=== PATIENT | female | born 1950 | race Caucasian/White ===

== ENCOUNTER 2016-06-19 08:18 | Inpatient (IN) ==
[2016-06-19] MEDS ORDERED: Ondansetron 4 MG/2 ML VIAL IVP PRN (09:56)
--- NOTE | 2016-06-19 11:08 | Internal Med History&Physical ---
<Elke Martinez - Last Filed: 06/19/16 12:08> Date of Encounter: 06/19/16 Time of Encounter: 10:34 Assessment and Plan (1) Acute exacerbation of chronic obstructive airways disease Current visit: No Status: Acute 2 day history of non-productive cough, rhinorrhea, and subjective fevers. Pt presented to ED in [place] for diaphoresis. WBC 6.4, chest xray shows persistent partial L lung collapse and volume loss which has progressed mildly from 03/2016. Denies wheezing, however she has audible wheezing during exam. She wears 3L 02 at home. Will continue. Duonebs q4h Albuerol nebs q2h prn Telemetry Continuous pulse ox Solumedrol 40mg IV O2 n/c check CT chest (2) Atelectasis of left lung Current visit: Yes Status: Acute chest xray shows persistent partial L lung collapse and volume loss which has progressed mildly from 03/2016. repeat ct chest. may need pulmonary consult. (3) Chronic respiratory failure Current visit: Yes Status: Acute 3L at home. at baseline. Qualifiers: Respiratory failure complication: hypoxia Qualified Code(s): J96.11 - Chronic respiratory failure with hypoxia (4) Chronic kidney disease Current visit: No Status: Chronic GFR 53, Creatinine 1.03. Pt of Dr. Pickett. Avoid nephrotoxins and NSAIDs Monitor labs Qualifiers: Chronic kidney disease stage: stage 1 Qualified Code(s): N18.1 - Chronic kidney disease, stage 1 (5) Anemia Current visit: No Status: Chronic Hgb 9.6. Stable. Will continue to monitor labs. Qualifiers: Anemia type: iron deficiency Iron deficiency anemia type: unspecified iron deficiency Qualified Code(s): D50.9 - Iron deficiency anemia, unspecified (6) Tobacco abuse Current visit: Yes Status: Chronic Pt smokes 1/2 PPD despite wearing home 02 Smoking cessation education on discharge. (7) Debility Current visit: No Status: Chronic Pt uses walker inside of home. States that she mainly walks from the couch to the bathroom and is physically unable to go outside any longer due to weakness and debility. PT/OT consult Loss Prevention Detective consult. (8) Hypothyroidism (acquired) Current visit: No Status: Chronic Acquired from chemotherapy. Stable. Labs WNL 03/2016. Continue Levothyroxine. Internal Medicine - H&P: HPI Chief complaint: cough x 2 days Admitted From: Hospital to Hospital Transfer Plans for Post Hospital Care: Home History of present illness: Ms. Valverde is a 66 year old female with a history of COPD, head, neck, and lung cancer, HTN, anemia, CKD, and hypothyroidism. 2 day history of non productive cough, subjective fevers, rhinorrhea, diaphoresis, and increased use of her inhalers. called EMS for her due to diaphoresis. Home 02 at 3L at all times and she still smokes 1/2 PPD. She denies wheezing, however she has audible wheezing. Pt has had a recent fall at home. She has a new stool next to her bed and she fell on it about a week ago. She denies repeated falls. She lives at home with her who she states is still independent, and she says that she gets Passport services, however, she is vague about when someone is there to help them. Pt is dissheveled and appears to be unkempt. This may be due to recent illness, however, Loss Prevention Detective has been consulted to check on resources. Past Med Surg Social Fam HX - Past Medical History Medical history: asthma, COPD, diabetes, GERD, hyperlipidemia, hypertension, migraine, renal disease, thyroid disease, other Psychiatric history: anxiety, depression - Past Surgical History Surgical History: appendectomy, cholecystectomy, RAMONA/BSO, other - Social History Smoking Status: Current every day smoker Smokeless Tobacco Status: No Alcohol use: none Drug use: none Internal Medicine - H&P: Meds Aspirin 81 mg PO DAILY 12/03/14 [History] Budesonide/Formoterol 160/4.5 [Symbicort] 2 puff IH BID 12/03/14 [History] Oxygen 3 l IH AD 02/28/15 [History] Cetirizine HCl [Zyrtec] 10 mg PO DAILY 05/29/15 [History] Ergocalciferol (VITAMIN D2) [Vitamin D2 (50,000 UNIT)] 50,000 unit PO QWEEK 11/15 [History] Ferrous Sulfate [Iron] 325 mg PO DAILY #90 tablet 03/31/16 [Rx] Atorvastatin [Lipitor] 10 mg PO HS 06/19/16 [History] LORazepam [Ativan] 1 mg PO BID 06/19/16 [History] Levothyroxine [Synthroid] 75 mcg PO DAILY 06/19/16 [History] Losartan [Cozaar] 25 mg PO DAILY 06/19/16 [History] Mirtazapine [Remeron] 15 mg PO HS 06/19/16 [History] Omeprazole [PriLOSEC] 40 mg PO DAILY 06/19/16 [History] Allergies codeine Adverse Reaction (Mild, Verified 06/19/16 04:59) Nausea STERIODS Allergy (Mild, Uncoded 02/28/15 07:31) Rash/NAUSEA All Systems PM: A 10-system review of systems was performed and is negative for pertinent findings except as documented above in the HPI. - Constitutional Constitutional: excessive sweating, fever(s), falls, weakness, no chills - Cardiovascular Cardiovascular ROS IM: diaphoresis, dyspnea, no chest pain, no edema, no lightheadedness, no palpitations - Respiratory Respiratory: cough, dyspnea, wheezing, chest congestion - Gastrointestinal Gastrointestinal: no cramping, no diarrhea, no nausea, no vomiting - Genitourinary Genitourinary: urinary incontinence - Musculoskeletal Musculoskeletal ROS IM: muscle weakness - Integumentary Integumentary IM: other Additional comments: what appears to be acanthosis nigricans around neck and upper chest area. Nurse reports excoriation under breasts and panus. - Constitutional Vitals: Temp Pulse Resp BP Pulse Ox 99.2 F 97 17 141/82 92 L 06/19/16 10:23 06/19/16 10:23 06/19/16 10:23 06/19/16 10:23 06/19/16 10:23 General appearance: Present: cooperative, A&O X 3, pleasant, underweight, answers questions appropriately Exam: Pt is sometimes slow to respond. - Head Head exam: Present: atraumatic, normal inspection, normocephalic - Eye Eye exam: Present: normal appearance, conjuntiva pink - ENT ENT exam: Present: mucous membranes moist - Neck Neck exam general surgery: Present: normal inspection - Respiratory Respiratory exam: Absent: chest wall tenderness, decreased breath sounds, wheezes - Cardiovascular Cardiovascular exam: Present: RRR, +S1, +S2 - GI/Abdominal GI/Abdominal exam: Present: distended, normal bowel sounds, soft. Absent: splenomegaly, tenderness - Extremities Exam Extremities exam: Present: normal inspection, warm, radial pulses palpable and symetrical. Absent: calf tenderness, cyanotic, joint swelling, pedal edema, tenderness Additional comments: Pt has +2 colby pedal pulses. No edema. - Neurological Exam Neurological exam: Present: alert, oriented X3. Absent: speech deficit Additional comments: Pt has tremor to R hand that she has had for a year. She has not had it assessed. She is right handed and it interferes with feeding. - Expanded Neurological Exam Neurological exam expanded: Present: tremor - Skin Skin exam: Present: rash Additional comments: rash that appears to be acanthosis nigricans to neck and upper chest. Internal Med - H&P Results - Labs CBC & Chem 7: 06/19/16 10:24 Labs: BMP 06/19/16 10:24 Sodium 129 L <Ashli Olmstead E - Last Filed: 06/20/16 07:42> Date of Encounter: 06/20/16 Internal Medicine - H&P: HPI History of present illness: Ms. Valverde is a 66 year old female All Systems PM: A 10-system review of systems was performed and is negative for pertinent findings except as documented above in the HPI. - Constitutional Vitals: Temp Pulse Resp BP Pulse Ox 99.3 F 98 32 147/82 94 L 06/20/16 06:46 06/20/16 06:46 06/20/16 06:46 06/20/16 06:46 06/20/16 06:46 Internal Med - H&P Results - Labs CBC & Chem 7: 06/20/16 03:18 06/20/16 03:18 Labs: Short CBC 06/20/16 Range/Units 03:18 WBC 8.9 (4.3-11.1) K/mcL Hgb 10.1 L (11.5-15.4) g/dL Hct 29.4 L (35.3-44.9) % Plt Count 246 (140-400) K/mcL Neutrophils # 8.3 (1.6-8.9) K/mcL BMP 06/19/16 06/20/16 10:24 03:18 Sodium 129 L 128 L Potassium 4.5 Chloride 93 L Carbon Dioxide 25 BUN 12 Creatinine 1.07 Glucose 131 H Calcium 9.6 - ABG Interpretation ABG results: 06/19/16 19:02 ABG pH 7.40 ABG pCO2 45 ABG pO2 65 L ABG HCO3 27.9 H ABG Total CO2 29.3 H ABG O2 Saturation 92 L ABG Base Excess 2.7 - Impressions ITS Impressions Chest CT 06/19/16 14:04 IMPRESSION: Partial collapse of the left upper lobe and left lower lobe. Filling defect within the left upper lobe bronchus which may reflect a mass or mucous plug. Milder atelectatic changes within the right middle lobe with a filling defect also seen within the right middle lobe bronchus. D/ / Jim Lawson MD / Jim Lawson MD Interpreting Provider: Jim Laswon MD Chest X-Ray 06/19/16 17:34 IMPRESSION: Increased ground-glass attenuation in the left upper lung zone may represent atelectasis or developing pneumonitis. There is increased elevation of the left hemidiaphragm with probable left basilar atelectasis. D/ / Rickey Edouard MD / Rickey Edouard MD Interpreting Provider: Rickey Edouard MD - Attending Attestation I examined this patient and reviewed laboratory, imaging and all diagnostic data on 06/19/16. My medical decision-making was reviewed with YADIRA Martinez. I agree with the documented findings, disposition and treatment plan as described above. 66 year old female with a history of COPD, oxygen dependant at 3L, head , neck, and lung cancer who presents to [place] ED with progressive shortness of breath and productive cough. Examination reveals mild wheezes bilaterally. CXR showed chronic left lung collapse. She was admitted with COPD exacerbation, chronic respiratory failure. She was started on albuterol/ atrovent nebs, mucomyst nebs, mucinex and IV levaquin. Ct chest ordered.
[2016-06-19] MEDS: Acetylcysteine 10% 2 ML INHSOL IH SCH ×4 (11:15→23:13)
[2016-06-19] MEDS: Ipratropium/Albuterol Neb 3 ML IH SCH ×4 (11:15→19:57)
[2016-06-19] MEDS: Acetaminophen 325 MG TABLET PO PRN (11:55)
[2016-06-19] MEDS: Nystatin Cream 15 GM TUBE TP SCH ×2 (11:58→21:40)
[2016-06-19] MEDS ORDERED: Budesonide/Formoterol 160/4.5 MDI IH SCH ×2 (17:45→22:00)
[2016-06-19] MEDS ORDERED: Budesonide/Formoterol 160/4.5 MDI IH ONE (18:00)
[2016-06-19] MEDS: Levofloxacin 500 MG/100 ML 500 MG/100 ML BAG IVPB SCH (18:02)
[2016-06-19] MEDS: MethylPREDNISolone 40 MG/ML VIAL IVP SCH (18:06)
[2016-06-19] MEDS: *HR* Heparin 5,000 UNIT/ML VIAL SQ SCH (18:06)
--- NOTE | 2016-06-19 18:41 | Event Note ---
Date of Encounter: 06/19/16 Time of Encounter: 16:00 Critical care note- first hour. time spent 30 min. Called by nurse, patient developed severe respiratory status after walking to the bathroom. Patient is tachypneic. SaO2 90% on 4 L NC. Lungs diminished air entry and diffuse wheezes. CT chest ordered but not done yet. a/p acute respiratory failure with hypoxemia. stat duonebs. add mucomyst and symbicort. stat CXR and ABG.
[2016-06-19 19:15] LABS: ABG Base Excess 2.7 mEq/L (-2.0 to 3.0); ABG HCO3 27.9 mEQ/L (21-27); ABG Oxygen Saturation 92 % (95-98); ABG PCO2 45 mmHg (35-45); ABG PO2 65 mmHg (85-104); ABG TCO2 29.3 mEq/L (20-26)
[2016-06-19 19:18] LABS: Blood Gas Liter Flow 36 L/MIN
[2016-06-19] MEDS: *HR* LORazepam 1 MG TABLET PO PRN (20:14)
[2016-06-19] MEDS: Mirtazapine 15 MG TABLET PO SCH (20:55)
[2016-06-20] MEDS ORDERED: hydroCHLOROthiazide 25 MG TABLET PO ONE (00:15)
[2016-06-20] MEDS: Ipratropium/Albuterol Neb 3 ML IH SCH ×6 (01:12→20:34)
[2016-06-20] MEDS: Acetylcysteine 10% 2 ML INHSOL IH SCH ×6 (01:12→20:34)
[2016-06-20 03:50] LABS: Basophils % 0.2 %; Hematocrit 29.4 % (35.3-44.9); Hemoglobin 10.1 g/dL (11.5-15.4); Immature Granulocytes % 0.7 % (0-4); Lymphocytes # 0.4 K/mcL (0.6-4.6); Lymphocytes % 4.1 %; Mean Corpuscular HGB Conc 34.4 g/dL (31.6-35.5); Mean Corpuscular Hemoglobin 31.3 pg (28.0-33.3); Mean Platelet Volume 9.1 fL (9.4-12.4); Monocytes # 0.2 K/mcL (0.0-1.3); Monocytes % 1.9 %; Neutrophils # 8.3 K/mcL (1.6-8.9); Platelet Count 246 K/mcL (140-400); Red Blood Count 3.23 M/mcL (3.82-4.97); Red Cell Distribution Width 13.2 % (11.5-14.5); Segmented Neutrophils % 93.1 %
[2016-06-20 04:11] LABS: BUN/Creatinine Ratio 11 (6-26); Blood Urea Nitrogen 12 mg/dL (7-20); Calcium 9.6 mg/dL (8.6-10.8); Carbon Dioxide 25 mEq/L (19-29); Chloride 93 mEq/L (98-109); Glucose 131 mg/dL (70-99); Magnesium 1.8 mg/dL (1.6-2.6); Osmolality,Calculated 268 (280-300); Phosphorous 3.6 mg/dL (2.3-4.7); Potassium 4.5 mEq/L (3.5-4.5); Sodium 128 mEq/L (136-145); eGFR For African Americans > 60 (> 60); eGFR For Non-African Americans 51 (> 60)
[2016-06-20] MEDS: MethylPREDNISolone 40 MG/ML VIAL IVP SCH ×2 (06:09→17:23)
[2016-06-20] MEDS: *HR* Heparin 5,000 UNIT/ML VIAL SQ SCH ×2 (06:11→17:23)
[2016-06-20] MEDS: Nystatin Cream 15 GM TUBE TP SCH ×2 (07:34→19:39)
[2016-06-20] MEDS ORDERED: MethylPREDNISolone 40 MG/ML VIAL IVP SCH (09:00)
[2016-06-20] MEDS: Aspirin 81 MG TAB.CHEW PO SCH (09:45)
[2016-06-20] MEDS: Budesonide/Formoterol 160/4.5 MDI IH SCH ×2 (11:30→20:34)
--- NOTE | 2016-06-20 11:36 | Pulmonology Consult Note ---
Date of Encounter: 06/20/16 Time of Encounter: 10:30 Assessment and Plan (1) Mucus plugging of bronchi Current Visit: Yes Status: Acute Patient declined bronchoscopy, because she had complications in the past (stop breathing) and will revisit her tomorrow, if she wants to do it and no improvement with mucolytics/bronchodilators/and chest physical therapy. Explained to the RT to focus on the area of mucus plugging and discussed with primary team. (2) Atelectasis of left lung Current Visit: Yes Status: Acute (3) Chronic respiratory failure Current Visit: Yes Status: Acute Qualifiers: Respiratory failure complication: hypoxia Qualified Code(s): J96.11 - Chronic respiratory failure with hypoxia History of Present Illness Consult date: 06/20/16 Requesting physician: Ashli Olmstead Reason for consult: dyspnea, other (mucus plug) Chief complaint: Dyspnea History of present illness: This is a pleasant 66 year old female who is poor historian and I am not able to get a reliable history from her, she was seen with the nurse and she was found to have mucus plugs with pneumonia and pulmonary was consulted. Patient is having productive cough with think sputum per the nurse and she denies any chest pain or hemoptysis. Patient stated she had bronchoscopy in the past and she complications with it and her breathing stopped. Unfortunately I'm not able to get anymore history from this patient. Past Med Surg Social Fam HX - Past Medical History Medical history: asthma, COPD, diabetes, GERD, hyperlipidemia, hypertension, migraine, renal disease, thyroid disease, other Psychiatric history: anxiety, depression - Past Surgical History Surgical History: appendectomy, cholecystectomy, RAMONA/BSO, other - Social History Smoking Status: Current every day smoker Smokeless Tobacco Status: No Alcohol use: none Drug use: none Medications and Allergies Aspirin 81 mg PO DAILY 12/03/14 [History] Budesonide/Formoterol 160/4.5 [Symbicort] 2 puff IH BID 12/03/14 [History] Oxygen 3 l IH AD 02/28/15 [History] Cetirizine HCl [Zyrtec] 10 mg PO DAILY 05/29/15 [History] Ergocalciferol (VITAMIN D2) [Vitamin D2 (50,000 UNIT)] 50,000 unit PO QWEEK 11/15 [History] Ferrous Sulfate [Iron] 325 mg PO DAILY #90 tablet 03/31/16 [Rx] Atorvastatin [Lipitor] 10 mg PO HS 06/19/16 [History] LORazepam [Ativan] 1 mg PO BID 06/19/16 [History] Levothyroxine [Synthroid] 75 mcg PO DAILY 06/19/16 [History] Losartan [Cozaar] 25 mg PO DAILY 06/19/16 [History] Mirtazapine [Remeron] 15 mg PO HS 06/19/16 [History] Omeprazole [PriLOSEC] 40 mg PO DAILY 06/19/16 [History] Cholecalciferol (D-3) [Vitamin D] 50,000 unit PO QWEEK 06/20/16 [History] Allergies codeine Adverse Reaction (Mild, Verified 06/19/16 04:59) Nausea STERIODS Allergy (Mild, Uncoded 02/28/15 07:31) Rash/NAUSEA All Systems: A 10-system review of systems was performed and is negative for pertinent findings except as documented above in the HPI. Physical Examination Vital Signs: Vital Signs, Last 4 Hours Temp Pulse Resp BP Pulse Ox 06/20/16 11:18 98.1 F 89 22 154/70 95 06/20/16 07:47 18 95 06/20/16 07:45 95 General appearance: lethargic Eyes: nonicteric ENT: oropharynx dry Mallampati (class): 4 Neck: supple Effort: mildly labored Auscultation: left: diminished breath sounds, right: rhonchi Percussion: bilateral: not dull Cardiovascular: regular rate and rhythm Gastrointestinal: normoactive bowel sounds Integumentary: normal Extremities: no cyanosis unable to assess due to mental status (Patient has tremor and difficult to fully examine patient) depressed Results - Laboratory Findings CBC and BMP: 06/20/16 03:18 06/20/16 03:18 ABG ABG pH 7.40 pH Units (7.32-7.45) 06/19/16 19:02 ABG pCO2 45 mmHg (35-45) 06/19/16 19:02 ABG pO2 65 mmHg (85-104) L 06/19/16 19:02 ABG O2 Saturation 92 % (95-98) L 06/19/16 19:02 Abnormal lab findings: Abnormal lab results RBC 3.23 M/mcL (3.82-4.97) L 06/20/16 03:18 Hgb 10.1 g/dL (11.5-15.4) L 06/20/16 03:18 Hct 29.4 % (35.3-44.9) L 06/20/16 03:18 MPV 9.1 fL (9.4-12.4) L 06/20/16 03:18 Lymphocytes # 0.4 K/mcL (0.6-4.6) L 06/20/16 03:18 ABG pO2 65 mmHg (85-104) L 06/19/16 19:02 ABG HCO3 27.9 mEQ/L (21-27) H 06/19/16 19:02 ABG Total CO2 29.3 mEq/L (20-26) H 06/19/16 19:02 ABG O2 Saturation 92 % (95-98) L 06/19/16 19:02 Sodium 128 mEq/L (136-145) L 06/20/16 03:18 Chloride 93 mEq/L (98-109) L 06/20/16 03:18 Est GFR (Non-Af Amer) 51 (> 60) L 06/20/16 03:18 Glucose 131 mg/dL (70-99) H 06/20/16 03:18 Calculated Osmolality 268 (280-300) L 06/20/16 03:18 - Diagnostic Findings CT scan - chest: report reviewed, image reviewed - Clinical Findings Intake & Output: Intake & Output 06/19/16 06/20/16 06/20/16 23:59 07:59 15:59 Weight 74.253 kg Consult Discharge Plan - Plan Referrals: Lakeisha Marsh, POLYGRAPH OPERATOR [Primary Care Provider] -
--- NOTE | 2016-06-20 15:13 | Internal Med Progress Note ---
Date of Encounter: 06/20/16 Time of Encounter: 13:00 - Assessment and plan (1) Mucus plugging of bronchi Current Visit: Yes Status: Acute Assessment and plan: Resultant atelectasis of the left lung. Pulmonology evaluated patient and recommended bronchoscopy. However patient has declined bronchoscopy at this time. Chest physiotherapy has been ordered. Will reassess in the morning if symptoms have improved. Moderate risk for complications. (2) Atelectasis of left lung Current Visit: Yes Status: Acute (3) Chronic respiratory failure Current Visit: Yes Status: Acute Assessment and plan: Continue O2 supplementation. Currently on 4 L nasal cannula. BiPAP to use as needed. Qualifiers: Respiratory failure complication: hypoxia Qualified Code(s): J96.11 - Chronic respiratory failure with hypoxia (4) Tobacco abuse Current Visit: Yes Status: Chronic (5) Anemia Current Visit: No Status: Chronic Assessment and plan: Chronic anemia with hemoglobin at baseline. Will monitor for now. Qualifiers: Anemia type: iron deficiency Iron deficiency anemia type: unspecified iron deficiency Qualified Code(s): D50.9 - Iron deficiency anemia, unspecified (6) Debility Current Visit: Yes Status: Chronic Assessment and plan: PTOT has been consulted. We will follow their recommendations. (7) Hypothyroidism (acquired) Current Visit: No Status: Chronic Assessment and plan: Continue levothyroxine - Subjective Interval history: Patient is feeling better compared to yesterday. Denies any chest pain but continuing to have difficulty taking deep breaths. No chest pain. Does have cough but no hemoptysis. - Constitutional Vitals: Temp Pulse Resp BP Pulse Ox 98.7 F 99 20 119/72 91 L 06/20/16 14:49 06/20/16 14:49 06/20/16 14:49 06/20/16 14:49 06/20/16 14:49 General appearance: Present: cooperative, A&O X 3, pleasant, underweight, answers questions appropriately - Respiratory Respiratory exam: Present: decreased breath sounds (Left lower lobe ), prolonged expiratory phase. Absent: accessory muscle use, rales, rhonchi, wheezes - Cardiovascular Cardiovascular exam: Present: RRR, +S1, +S2. Absent: diastolic murmur, gallop, rubs, systolic murmur - GI/Abdominal GI/Abdominal exam: Present: normal bowel sounds, soft, no peritoneal signs. Absent: distended, tenderness - Extremities Exam Extremities exam: Present: warm, radial pulses palpable and symetrical. Absent : calf tenderness, cyanotic, pedal edema Internal Medicine: Result - Labs CBC & Chem 7: 06/20/16 03:18 06/20/16 03:18 Labs: Short CBC 06/20/16 Range/Units 03:18 WBC 8.9 (4.3-11.1) K/mcL Hgb 10.1 L (11.5-15.4) g/dL Hct 29.4 L (35.3-44.9) % Plt Count 246 (140-400) K/mcL Neutrophils # 8.3 (1.6-8.9) K/mcL BMP 06/20/16 03:18 Sodium 128 L Potassium 4.5 Chloride 93 L Carbon Dioxide 25 BUN 12 Creatinine 1.07 Glucose 131 H Calcium 9.6 - ABG Interpretation ABG results: ABG ABG pH 7.40 pH Units (7.32-7.45) 06/19/16 19:02 ABG pCO2 45 mmHg (35-45) 06/19/16 19:02 ABG pO2 65 mmHg (85-104) L 06/19/16 19:02 ABG O2 Saturation 92 % (95-98) L 06/19/16 19:02 - Impressions Impressions Chest CT 06/19/16 14:04 IMPRESSION: Partial collapse of the left upper lobe and left lower lobe. Filling defect within the left upper lobe bronchus which may reflect a mass or mucous plug. Milder atelectatic changes within the right middle lobe with a filling defect also seen within the right middle lobe bronchus. D/ / Jim Lawson MD / Jim Lawson MD Interpreting Provider: Jim Lawson MD Chest X-Ray 06/19/16 17:34 IMPRESSION: Increased ground-glass attenuation in the left upper lung zone may represent atelectasis or developing pneumonitis. There is increased elevation of the left hemidiaphragm with probable left basilar atelectasis. D/ / Rickey Edouard MD / Rickey Edouard MD Interpreting Provider: Rickey Edouard MD Consult Discharge Plan - Plan Referrals: Lakeisha Marsh CNP [Primary Care Provider] - - Attending Attestation This document has been at least partially created by 3LM recognition technology by Dr. Saunders. Errors in grammar, wording or other phrases may exist. If errors are found after the documentation is signed, they will be addressed individually in the addendum section of this document when appropriate.
[2016-06-20] MEDS: Mirtazapine 15 MG TABLET PO SCH (19:39)
[2016-06-20] MEDS ORDERED: Vancomycin 1,000 MG in D5% in Water 250 ML IVPB SCH (22:00)
[2016-06-20] MEDS: Vancomycin 1,500 MG in D5% in Water 250 ML IVPB SCH (22:06)
[2016-06-21] MEDS: Ipratropium/Albuterol Neb 3 ML IH SCH ×6 (00:26→20:01)
[2016-06-21] MEDS: Acetylcysteine 10% 2 ML INHSOL IH SCH ×6 (00:30→20:01)
[2016-06-21] MEDS: *HR* Heparin 5,000 UNIT/ML VIAL SQ SCH ×2 (04:57→17:53)
[2016-06-21] MEDS: MethylPREDNISolone 40 MG/ML VIAL IVP SCH ×3 (05:29→17:53)
[2016-06-21] MEDS: Nystatin Cream 15 GM TUBE TP SCH ×2 (07:40→21:09)
[2016-06-21] MEDS: Megestrol Acetate 400 MG/10 ML UDC PO SCH ×2 (07:41→11:15)
[2016-06-21] MEDS: Aspirin 81 MG TAB.CHEW PO SCH ×2 (07:41→11:15)
[2016-06-21] MEDS: Budesonide/Formoterol 160/4.5 MDI IH SCH ×2 (08:25→20:53)
[2016-06-21 08:29] LABS: Basophils % 0.1 %; Hematocrit 28.8 % (35.3-44.9); Hemoglobin 9.9 g/dL (11.5-15.4); Immature Granulocytes % 0.5 % (0-4); Lymphocytes # 0.4 K/mcL (0.6-4.6); Lymphocytes % 3.1 %; Mean Corpuscular HGB Conc 34.4 g/dL (31.6-35.5); Mean Corpuscular Hemoglobin 31.1 pg (28.0-33.3); Mean Corpuscular Volume 90.6 fL (83.0-100.0); Mean Platelet Volume 8.3 fL (9.4-12.4); Monocytes # 0.6 K/mcL (0.0-1.3); Monocytes % 4.6 %; Neutrophils # 11.5 K/mcL (1.6-8.9); Platelet Count 265 K/mcL (140-400); Red Blood Count 3.18 M/mcL (3.82-4.97); Red Cell Distribution Width 13.5 % (11.5-14.5); Segmented Neutrophils % 91.7 %
[2016-06-21 08:40] LABS: Calcium 9.8 mg/dL (8.6-10.8)
[2016-06-21] MEDS: 0.9 % Sodium Chloride 1,000 ML IVC SCH ×2 (11:15→21:09)
--- NOTE | 2016-06-21 12:11 | Pulmonology Progress Note ---
Date of Encounter: 06/21/16 Time of Encounter: 10:55 Assessment and Plan (1) Mucus plugging of bronchi Current Visit: Yes Status: Acute Patient remained stable and I suspect she will have chronic cough from her significant history of smoking with sputum production. I discussed with the and the patient about bronchoscopy in the presence of the nurse and they agreed to have it done, however patient has significant complication in the past and they were not sure whether it was related to the procedure or when she had lung collapse. I feel chest x-ray and some improvement in aeration in the left upper lobe for that reason I explained to the and the patient we will check an x-ray in the morning and injuries further improvement then to continue chest PT was bronchodilators and mucolytics as well as patient needs to quit smoking and the understand and agreed with the plan. (2) Atelectasis of left lung Current Visit: Yes Status: Acute Incentive spirometry as much as possible (3) Chronic respiratory failure Current Visit: Yes Status: Chronic Wean off oxygen to keep SPO2 around 92%. Qualifiers: Respiratory failure complication: hypoxia Qualified Code(s): J96.11 - Chronic respiratory failure with hypoxia (4) COPD (chronic obstructive pulmonary disease) with chronic bronchitis Current Visit: Yes Status: Chronic Continue bronchodilators. I do not feel strongly this patient have COPD exacerbation. (5) Tobacco abuse Current Visit: Yes Status: Chronic Advised patient to quit smoking (6) Lung cancer Current Visit: No Status: Chronic If there is continuous improvement in chest x-ray, then unlikely this is her underlying malignancy Qualifiers: Laterality: left Lung location: upper lobe of lung Qualified Code(s): C34.12 - Malignant neoplasm of upper lobe, left bronchus or lung Subjective Principal diagnosis: Dyspnea and mucous plugs Interval history: There is no major changes, however to migrating chest x-ray shows some improvement. Objective PUL Vital signs: Last Vital Signs Temp 97.7 F 06/21/16 11:36 Pulse 99 06/21/16 11:36 Resp 24 06/21/16 11:36 BP 151/73 06/21/16 11:36 Pulse Ox 99 06/21/16 11:36 General appearance: no acute distress Eyes: nonicteric ENT: oropharynx dry Neck: no JVD Effort: normal Auscultation: bilateral: rhonchi (Skin changes mainly in the left side) Cardiovascular: regular rate and rhythm Gastrointestinal: normoactive bowel sounds, soft, non-distended Integumentary: other (Skin changes in the chest) Extremities: no edema pupils equal and round, other (Tremor mainly in the right side) other (Flat affect) Results - Laboratory Findings CBC and BMP: 06/21/16 08:21 06/21/16 08:21 ABG ABG pH 7.40 pH Units (7.32-7.45) 06/19/16 19:02 ABG pCO2 45 mmHg (35-45) 06/19/16 19:02 ABG pO2 65 mmHg (85-104) L 06/19/16 19:02 ABG O2 Saturation 92 % (95-98) L 06/19/16 19:02 Abnormal lab findings: Abnormal lab results WBC 12.5 K/mcL (4.3-11.1) H 06/21/16 08:21 RBC 3.18 M/mcL (3.82-4.97) L 06/21/16 08:21 Hgb 9.9 g/dL (11.5-15.4) L 06/21/16 08:21 Hct 28.8 % (35.3-44.9) L 06/21/16 08:21 MPV 8.3 fL (9.4-12.4) L 06/21/16 08:21 Neutrophils # 11.5 K/mcL (1.6-8.9) H 06/21/16 08:21 Lymphocytes # 0.4 K/mcL (0.6-4.6) L 06/21/16 08:21 ABG pO2 65 mmHg (85-104) L 06/19/16 19:02 ABG HCO3 27.9 mEQ/L (21-27) H 06/19/16 19:02 ABG Total CO2 29.3 mEq/L (20-26) H 06/19/16 19:02 ABG O2 Saturation 92 % (95-98) L 06/19/16 19:02 Sodium 133 mEq/L (136-145) L 06/21/16 08:21 Chloride 96 mEq/L (98-109) L 06/21/16 08:21 BUN 24 mg/dL (7-20) H D 06/21/16 08:21 Creatinine 1.12 mg/dL (0.57-1.11) H 06/21/16 08:21 Est GFR ( Amer) 59 (> 60) L 06/21/16 08:21 Est GFR (Non-Af Amer) 48 (> 60) L 06/21/16 08:21 Glucose 140 mg/dL (70-99) H 06/21/16 08:21 - Diagnostic Findings Chest x-ray: report reviewed, image reviewed - Clinical Findings Intake & Output: Intake & Output 06/20/16 06/21/16 06/21/16 23:59 07:59 15:59 Intake Total 240 / 240 250 / 250 Balance 240 / 240 250 / 250 Consult Discharge Plan - Plan Referrals: Lakeisha Marsh, SANITATION ENGINEER [Primary Care Provider] -
[2016-06-21] MEDS: Levofloxacin 500 MG/100 ML 500 MG/100 ML BAG IVPB SCH (15:08)
[2016-06-21] MEDS: *HR* LORazepam 1 MG TABLET PO PRN (15:08)
[2016-06-21] MEDS: Acetaminophen 325 MG TABLET PO PRN (15:14)
--- NOTE | 2016-06-21 15:28 | Internal Med Progress Note ---
Date of Encounter: 06/21/16 Time of Encounter: 12:30 - Assessment and plan (1) Mucus plugging of bronchi Current Visit: Yes Status: Acute Assessment and plan: Continue chest physical therapy. Chest days did not show us any significant improvement. Repeat chest x-ray tomorrow. Pulmonology following. Plan for bronchoscopy if no improvement on chest x-ray. (2) Atelectasis of left lung Current Visit: Yes Status: Acute Assessment and plan: Management as above. (3) Chronic respiratory failure Current Visit: Yes Status: Chronic Assessment and plan: Continue O2 supplementation Qualifiers: Respiratory failure complication: hypoxia Qualified Code(s): J96.11 - Chronic respiratory failure with hypoxia (4) Tobacco abuse Current Visit: Yes Status: Chronic (5) Anemia Current Visit: No Status: Chronic Assessment and plan: Chronic. Hemoglobin 9.9. Qualifiers: Anemia type: iron deficiency Iron deficiency anemia type: unspecified iron deficiency Qualified Code(s): D50.9 - Iron deficiency anemia, unspecified (6) Debility Current Visit: Yes Status: Chronic Assessment and plan: PTOT evaluation done. Patient did well with physical therapy. Patient should be able to return home when discharged. (7) Hypothyroidism (acquired) Current Visit: No Status: Chronic Assessment and plan: On levothyroxine (8) Acute renal failure Current Visit: Yes Status: Acute Assessment and plan: Mild acute kidney injury. Will gently hydrate. Hold losartan. Follow renal function. Moderate risk for complications. Qualifiers: Acute renal failure type: with acute tubular necrosis Qualified Code(s): N17.0 - Acute kidney failure with tubular necrosis - Subjective Interval history: Patient feels she is improving. On O2 supplementation. Receiving chest physical therapy. Denies any chest pain. - Constitutional Vitals: Temp Pulse Resp BP Pulse Ox 98.2 F 93 28 135/78 95 06/21/16 14:50 06/21/16 14:50 06/21/16 14:50 06/21/16 14:50 06/21/16 14:50 General appearance: Present: cooperative, A&O X 3, pleasant, underweight, answers questions appropriately - Neck Neck exam general surgery: Present: supple, trachea midline. Absent: lymphadenopathy - Respiratory Respiratory exam: Present: decreased breath sounds (left lung). Absent: accessory muscle use, rales, rhonchi, wheezes - Cardiovascular Cardiovascular exam: Present: RRR, +S1, +S2. Absent: diastolic murmur, gallop, rubs, systolic murmur - GI/Abdominal GI/Abdominal exam: Present: normal bowel sounds, soft, no peritoneal signs. Absent: distended, tenderness - Extremities Exam Extremities exam: Present: warm, radial pulses palpable and symetrical. Absent : calf tenderness, cyanotic, pedal edema Internal Medicine: Result - Labs CBC & Chem 7: 06/21/16 08:21 06/21/16 08:21 Labs: Short CBC 06/21/16 Range/Units 08:21 WBC 12.5 H (4.3-11.1) K/mcL Hgb 9.9 L (11.5-15.4) g/dL Hct 28.8 L (35.3-44.9) % Plt Count 265 (140-400) K/mcL Neutrophils # 11.5 H (1.6-8.9) K/mcL BMP 06/21/16 08:21 Sodium 133 L Potassium 4.0 Chloride 96 L Carbon Dioxide 25 BUN 24 H D Creatinine 1.12 H Glucose 140 H Calcium 9.8 - ABG Interpretation ABG results: ABG ABG pH 7.40 pH Units (7.32-7.45) 06/19/16 19:02 ABG pCO2 45 mmHg (35-45) 06/19/16 19:02 ABG pO2 65 mmHg (85-104) L 06/19/16 19:02 ABG O2 Saturation 92 % (95-98) L 06/19/16 19:02 - Impressions Impressions Chest X-Ray 06/20/16 12:39 IMPRESSION: Stable appearance of extensive left parahilar atelectasis with volume loss. Small left effusion is unchanged. Emphysematous changes. D/ / 06/20/2016 16:24:04 Galo Hernandez MD / Haven Vargas Interpreting Provider: Galo Hernandez MD Consult Discharge Plan - Plan Referrals: Lakeisha Marsh, PHOSPHATIC FERTILIZER SUPERVISOR [Primary Care Provider] - - Attending Attestation This document has been at least partially created by [employer] recognition technology by Dr. Saunders. Errors in grammar, wording or other phrases may exist. If errors are found after the documentation is signed, they will be addressed individually in the addendum section of this document when appropriate.
[2016-06-21] MEDS: Mirtazapine 15 MG TABLET PO SCH (21:08)
[2016-06-21] MEDS: Vancomycin 1,500 MG in D5% in Water 250 ML IVPB SCH (21:08)
[2016-06-22] MEDS: *HR* LORazepam 1 MG TABLET PO PRN ×2 (00:26→21:26)
[2016-06-22] MEDS: Acetylcysteine 10% 2 ML INHSOL IH SCH ×7 (00:29→19:56)
[2016-06-22] MEDS: Ipratropium/Albuterol Neb 3 ML IH SCH ×7 (00:29→19:56)
[2016-06-22] MEDS: MethylPREDNISolone 40 MG/ML VIAL IVP SCH ×2 (05:54→17:36)
[2016-06-22] MEDS: *HR* Heparin 5,000 UNIT/ML VIAL SQ SCH ×2 (05:54→21:26)
[2016-06-22 06:01] LABS: Hematocrit 26.7 % (35.3-44.9); Hemoglobin 8.8 g/dL (11.5-15.4); Immature Granulocytes % 0.7 % (0-4); Lymphocytes # 0.5 K/mcL (0.6-4.6); Lymphocytes % 7.3 %; Mean Corpuscular Hemoglobin 30.4 pg (28.0-33.3); Mean Corpuscular Volume 92.4 fL (83.0-100.0); Mean Platelet Volume 8.8 fL (9.4-12.4); Monocytes # 0.4 K/mcL (0.0-1.3); Monocytes % 5.3 %; Neutrophils # 6.4 K/mcL (1.6-8.9); Platelet Count 258 K/mcL (140-400); Red Blood Count 2.89 M/mcL (3.82-4.97); Red Cell Distribution Width 13.8 % (11.5-14.5); Segmented Neutrophils % 86.7 %
[2016-06-22 06:05] LABS: Prothrombin Time 10.7 Seconds (9.4-12.1)
[2016-06-22 06:14] LABS: BUN/Creatinine Ratio 26 (6-26); Blood Urea Nitrogen 26 mg/dL (7-20); Calcium 8.8 mg/dL (8.6-10.8); Carbon Dioxide 23 mEq/L (19-29); Chloride 103 mEq/L (98-109); Glucose 126 mg/dL (70-99); Osmolality,Calculated 284 (280-300); Potassium 4.7 mEq/L (3.5-4.5); Sodium 134 mEq/L (136-145); eGFR For African Americans > 60 (> 60); eGFR For Non-African Americans 56 (> 60)
[2016-06-22] MEDS: Budesonide/Formoterol 160/4.5 MDI IH SCH ×2 (07:29→19:57)
--- NOTE | 2016-06-22 08:18 | Internal Med Progress Note ---
Date of Encounter: 06/22/16 Time of Encounter: 08:05 - Assessment and plan (1) Mucus plugging of bronchi Current Visit: Yes Status: Acute Assessment and plan: Chest x-ray does not show any significant improvement compared to yesterday. Plan for bronchoscopy later today. Patient is doing well and is agreeable to the procedure. Moderate risk for complications. (2) Atelectasis of left lung Current Visit: Yes Status: Acute (3) Chronic respiratory failure Current Visit: Yes Status: Chronic Assessment and plan: Continue O2 supplementation. Bronchodilator nebs as needed. Qualifiers: Respiratory failure complication: hypoxia Qualified Code(s): J96.11 - Chronic respiratory failure with hypoxia (4) Tobacco abuse Current Visit: Yes Status: Chronic Assessment and plan: Patient has been counseled about cessation. (5) Anemia Current Visit: No Status: Chronic Assessment and plan: Chronic. Hemoglobin trending downwards. We will check iron levels, folic acid and B12 levels. Also check stool for occult blood. Qualifiers: Anemia type: iron deficiency Iron deficiency anemia type: unspecified iron deficiency Qualified Code(s): D50.9 - Iron deficiency anemia, unspecified (6) Debility Current Visit: Yes Status: Chronic Assessment and plan: Evaluated by physical therapy. Doing well enough to be discharged home. Recommend outpatient physical therapy if needed. (7) Hypothyroidism (acquired) Current Visit: No Status: Chronic (8) Acute renal failure Current Visit: Yes Status: Acute Assessment and plan: Improved renal function. We will decrease IV fluids Qualifiers: Acute renal failure type: with acute tubular necrosis Qualified Code(s): N17.0 - Acute kidney failure with tubular necrosis - Subjective Interval history: The patient is awake and alert. Continues to feel better. Denies any fevers chills or night sweats. Shortness of breath is improving. - Constitutional Vitals: Temp Pulse Resp BP Pulse Ox 98.5 F 89 36 150/76 95 06/22/16 07:18 06/22/16 07:18 06/22/16 07:18 06/22/16 07:18 06/22/16 07:18 General appearance: Present: cooperative, A&O X 3, pleasant, underweight, answers questions appropriately - Neck Neck exam general surgery: Present: supple, trachea midline. Absent: lymphadenopathy - Respiratory Respiratory exam: Present: decreased breath sounds (Left base), prolonged expiratory phase, wheezes. Absent: accessory muscle use, rales, rhonchi - Cardiovascular Cardiovascular exam: Present: RRR, +S1, +S2. Absent: diastolic murmur, gallop, rubs, systolic murmur - GI/Abdominal GI/Abdominal exam: Present: normal bowel sounds, soft, no peritoneal signs. Absent: distended, tenderness - Extremities Exam Extremities exam: Present: warm, radial pulses palpable and symetrical. Absent : calf tenderness, cyanotic, pedal edema - Psychiatric Psychiatric exam: Present: normal affect, normal mood - Skin Skin exam: Present: dry, intact Internal Medicine: Result - Labs CBC & Chem 7: 06/22/16 05:47 06/22/16 05:47 Labs: Short CBC 06/21/16 06/22/16 Range/Units 08:21 05:47 WBC 12.5 H 7.4 (4.3-11.1) K/mcL Hgb 9.9 L 8.8 L (11.5-15.4) g/dL Hct 28.8 L 26.7 L (35.3-44.9) % Plt Count 265 258 (140-400) K/mcL Neutrophils # 11.5 H 6.4 (1.6-8.9) K/mcL BMP 06/21/16 06/22/16 08:21 05:47 Sodium 133 L 134 L Potassium 4.0 4.7 H Chloride 96 L 103 Carbon Dioxide 25 23 BUN 24 H D 26 H Creatinine 1.12 H 0.99 Glucose 140 H 126 H Calcium 9.8 8.8 - ABG Interpretation ABG results: ABG ABG pH 7.40 pH Units (7.32-7.45) 06/19/16 19:02 ABG pCO2 45 mmHg (35-45) 06/19/16 19:02 ABG pO2 65 mmHg (85-104) L 06/19/16 19:02 ABG O2 Saturation 92 % (95-98) L 06/19/16 19:02 PT/INR, D-dimer PT 10.7 Seconds (9.4-12.1) 06/22/16 05:47 - Impressions Impressions Chest X-Ray 06/22/16 06:00 IMPRESSION: 1. Stable right chest wall MediPort. 2. Stable focal opacity in the left upper lung zone. D/ / Kiera Mackey MD / Kiera Mackey MD Interpreting Provider: Kiera Mackey MD Consult Discharge Plan - Plan Referrals: Lakeisha Marsh, BLENDING MACHINE FEEDER [Primary Care Provider] - - Attending Attestation This document has been at least partially created by [email or web address] recognition technology by Dr. Saunders. Errors in grammar, wording or other phrases may exist. If errors are found after the documentation is signed, they will be addressed individually in the addendum section of this document when appropriate.
[2016-06-22] MEDS: Megestrol Acetate 400 MG/10 ML UDC PO SCH (08:31)
[2016-06-22] MEDS: Aspirin 81 MG TAB.CHEW PO SCH (08:31)
[2016-06-22] MEDS: Nystatin Cream 15 GM TUBE TP SCH ×2 (08:33→21:33)
[2016-06-22] MEDS: 0.9 % Sodium Chloride 1,000 ML IVC SCH ×2 (08:34→21:29)
[2016-06-22] MEDS ORDERED: Aminoglycoside Consult 1 EACH MC ONE (08:55)
--- NOTE | 2016-06-22 09:57 | Pulmonology Progress Note ---
Date of Encounter: 06/22/16 Time of Encounter: 07:45 Assessment and Plan (1) Atelectasis of left lung Current Visit: Yes Status: Acute The chest radiographic abnormalities which include volume loss of the left upper lobe which have persisted are concerning for malignancy. This patient smokes actively has underlying COPD and established history of lung cancer. Therefore for further evaluation bronchoscopy will be performed. Given the patient's rather tenuous respiratory status, bronchoscopy may be poorly tolerated necessitating intubation. I reviewed this with the patient and she is still agreeable to proceed. Code(s): J98.11 - Atelectasis SNOMED Code(s): 03411319 Subjective Principal diagnosis: Dyspnea and mucous plugs Interval history: The patient admits to persistent cough and chest congestion. She also admits to sputum production but denies hemoptysis. She has decided to proceed with bronchoscopy. Objective PUL Vital signs: Last Vital Signs Temp 98.5 F 06/22/16 07:18 Pulse 89 06/22/16 07:18 Resp 36 06/22/16 07:18 BP 150/76 06/22/16 07:18 Pulse Ox 95 06/22/16 07:18 General appearance: no acute distress Eyes: nonicteric ENT: oropharynx moist Auscultation: bilateral: diminished breath sounds, rhonchi Cardiovascular: regular rate and rhythm Gastrointestinal: normoactive bowel sounds, non-distended Integumentary: normal Extremities: no cyanosis Musculoskeletal: no deformities normal mental status, non-focal exam Results - Laboratory Findings CBC and BMP: 06/22/16 05:47 06/22/16 05:47 ABG ABG pH 7.40 pH Units (7.32-7.45) 06/19/16 19:02 ABG pCO2 45 mmHg (35-45) 06/19/16 19:02 ABG pO2 65 mmHg (85-104) L 06/19/16 19:02 ABG O2 Saturation 92 % (95-98) L 06/19/16 19:02 PT/INR, D-dimer PT 10.7 Seconds (9.4-12.1) 06/22/16 05:47 Abnormal lab findings: Abnormal lab results RBC 2.89 M/mcL (3.82-4.97) L 06/22/16 05:47 Hgb 8.8 g/dL (11.5-15.4) L 06/22/16 05:47 Hct 26.7 % (35.3-44.9) L 06/22/16 05:47 MPV 8.8 fL (9.4-12.4) L 06/22/16 05:47 Lymphocytes # 0.5 K/mcL (0.6-4.6) L 06/22/16 05:47 ABG pO2 65 mmHg (85-104) L 06/19/16 19:02 ABG HCO3 27.9 mEQ/L (21-27) H 06/19/16 19:02 ABG Total CO2 29.3 mEq/L (20-26) H 06/19/16 19:02 ABG O2 Saturation 92 % (95-98) L 06/19/16 19:02 Sodium 134 mEq/L (136-145) L 06/22/16 05:47 Potassium 4.7 mEq/L (3.5-4.5) H 06/22/16 05:47 BUN 26 mg/dL (7-20) H 06/22/16 05:47 Est GFR (Non-Af Amer) 56 (> 60) L 06/22/16 05:47 Glucose 126 mg/dL (70-99) H 06/22/16 05:47 - Diagnostic Findings Chest x-ray: image reviewed CT scan - chest: image reviewed - Clinical Findings Intake & Output: Intake & Output 06/21/16 06/22/16 06/22/16 23:59 07:59 15:59 Intake Total 1250 / 1250 1100 / 1100 Balance 1250 / 1250 1100 / 1100 Consult Discharge Plan - Plan Referrals: Lakeisha Marsh, PRIVATE DUTY RN [Primary Care Provider] -
[2016-06-22] MEDS ORDERED: *HR* Midazolam HCl 5 MG/5 ML VIAL IVP ONE (17:47)
[2016-06-22] MEDS ORDERED: Lidocaine Viscous Oral Soln 15 ML SOLUTION ONE (17:47)
[2016-06-22] MEDS ORDERED: *HR* FentaNYL (PF) 100 MCG/2 ML VIAL ONE (17:47)
[2016-06-22] MEDS ORDERED: *HR* Midazolam HCl 5 MG/5 ML VIAL IVP PRN (17:54)
[2016-06-22] MEDS ORDERED: Lidocaine Viscous Oral Soln 15 ML SOLUTION MM ONE (17:54)
[2016-06-22] MEDS ORDERED: Simethicone 40 MG/0.6 ML MLS IR ONE (17:54)
[2016-06-22] MEDS ORDERED: *HR* EPINEPHrine 1 MG/10 ML SYRINGE INTRATRACH PRN (17:54)
[2016-06-22] MEDS ORDERED: Tetracaine/Benzocaine/Butamben 200MG/SPRAY (100SPY/BOT) MM ONE (17:54)
[2016-06-22] MEDS ORDERED: *HR* FentaNYL (PF) 100 MCG/2 ML VIAL IVP PRN (17:54)
[2016-06-22] MEDS ORDERED: Ipratropium/Albuterol Neb 3 ML IH ONE (17:54)
[2016-06-22] MEDS ORDERED: 0.9 % Sodium Chloride 500 ML IVC SCH (18:00)
[2016-06-22] MEDS ORDERED: Ipratropium/Albuterol Neb 3 ML ONE (18:17)
--- NOTE | 2016-06-22 18:35 | Event Note ---
Date of Encounter: 06/22/16 Time of Encounter: 18:33 Tenuous respiratory status both pre and post bronchoscopy. The patient received Duoneb treatment post procedure and Solumedrol dose/frequency adjusted as well. An ABG will also be obtained tonight. Note minimal sedation IV was provided for the procedure
[2016-06-22] MEDS: Mirtazapine 15 MG TABLET PO SCH (21:26)
[2016-06-22 21:49] LABS: ABG Base Excess 1.8 mEq/L (-2.0 to 3.0); ABG HCO3 27.2 mEQ/L (21-27); ABG Oxygen Saturation 93 % (95-98); ABG PCO2 46 mmHg (35-45); ABG PH 7.38 pH Units (7.32-7.45); ABG PO2 67 mmHg (85-104); ABG TCO2 28.6 mEq/L (20-26); Blood Gas FiO2 32 %
[2016-06-23] MEDS: Ipratropium/Albuterol Neb 3 ML IH SCH ×7 (00:58→22:53)
[2016-06-23] MEDS: methylPREDNISolone 125 MG/2 ML VIAL IVP SCH ×5 (01:09→23:52)
[2016-06-23 05:02] LABS: Hematocrit 29.7 % (35.3-44.9); Hemoglobin 9.7 g/dL (11.5-15.4); Immature Granulocytes % 0.8 % (0-4); Lymphocytes # 0.4 K/mcL (0.6-4.6); Lymphocytes % 5.6 %; Mean Corpuscular HGB Conc 32.7 g/dL (31.6-35.5); Mean Corpuscular Hemoglobin 30.7 pg (28.0-33.3); Monocytes # 0.2 K/mcL (0.0-1.3); Monocytes % 3.1 %; Neutrophils # 6.5 K/mcL (1.6-8.9); Platelet Count 265 K/mcL (140-400); Red Blood Count 3.16 M/mcL (3.82-4.97); Red Cell Distribution Width 14.4 % (11.5-14.5); Segmented Neutrophils % 90.5 %
[2016-06-23] MEDS: Acetylcysteine 10% 2 ML INHSOL IH SCH ×7 (05:18→22:53)
[2016-06-23 05:19] LABS: % Iron Saturation 36 % (15-50); BUN/Creatinine Ratio 24 (6-26); Blood Urea Nitrogen 24 mg/dL (7-20); Calcium 9.1 mg/dL (8.6-10.8); Carbon Dioxide 22 mEq/L (19-29); Chloride 107 mEq/L (98-109); Glucose 139 mg/dL (70-99); Iron 79 mcg/dL (50-170); Osmolality,Calculated 294 (280-300); Potassium 4.7 mEq/L (3.5-4.5); Sodium 139 mEq/L (136-145); Transferrin 155 mg/dL (180-382); eGFR For African Americans > 60 (> 60); eGFR For Non-African Americans 54 (> 60)
[2016-06-23 06:11] LABS: Ferritin 670 ng/ml (5-204)
[2016-06-23] MEDS: *HR* Heparin 5,000 UNIT/ML VIAL SQ SCH ×2 (06:36→18:51)
[2016-06-23] MEDS: Budesonide/Formoterol 160/4.5 MDI IH SCH ×2 (08:05→19:41)
[2016-06-23] MEDS: Aspirin 81 MG TAB.CHEW PO SCH (08:32)
[2016-06-23] MEDS: *HR* LORazepam 1 MG TABLET PO PRN ×2 (08:32→16:49)
[2016-06-23] MEDS: Megestrol Acetate 400 MG/10 ML UDC PO SCH (08:33)
--- NOTE | 2016-06-23 08:56 | Pulmonology Progress Note ---
Date of Encounter: 06/23/16 Time of Encounter: 08:54 Assessment and Plan (1) Atelectasis of left lung Current Visit: Yes Status: Acute The chest radiographic abnormalities which include volume loss of the left upper lobe which have persisted are concerning for malignancy. This patient smokes actively has underlying COPD and established history of lung cancer. Bronchoscopy performed yesterday did not reveal malignant endobronchial obstruction of the left upper lobe but was notable for severe diffuse inflammatory changes throughout the entire airways friable mucosa. The patient also has rather significant supraglottic edema presumably secondary to known head and neck cancer and possibly related to radiation treatments. Continue current medical therapy for treatment of COPD which includes continuous supplemental oxygen, bronchodilator therapy and systemic steroids. Steroids may be switched to enteral route and discontinue over a 10 day period of time (prefer to provide longer than typical course given severity of patient' s lung disease). Call if questions [facility] [place] [phone] Code(s): J98.11 - Atelectasis SNOMED Code(s): 70863251 Subjective Principal diagnosis: Dyspnea and mucous plugs Interval history: The patient admits to persistent cough and chest congestion but claims that these symptoms have improved since her admission. No acute overnight issues were noted. Objective PUL Vital signs: Last Vital Signs Temp 98.2 F 06/23/16 06:58 Pulse 94 06/23/16 06:58 Resp 17 06/23/16 06:58 BP 132/69 06/23/16 06:58 Pulse Ox 97 06/23/16 06:58 General appearance: no acute distress, other (Chronically ill appearing female, mildly tachypneic at rest with tremor) Eyes: nonicteric ENT: oropharynx moist Neck: JVD, other (Radiation skin changes noted over the lower neck and upper chest region) Auscultation: bilateral: diminished breath sounds, rhonchi, other (Mild use of accessory respiratory muscles, mild abdominal paradox) Cardiovascular: regular rate and rhythm Gastrointestinal: normoactive bowel sounds, non-distended Extremities: no cyanosis, edema normal mental status, non-focal exam mood appropriate Results - Laboratory Findings CBC and BMP: 06/23/16 04:32 06/23/16 04:32 ABG ABG pH 7.38 pH Units (7.32-7.45) 06/22/16 21:40 ABG pCO2 46 mmHg (35-45) H 06/22/16 21:40 ABG pO2 67 mmHg (85-104) L 06/22/16 21:40 ABG O2 Saturation 93 % (95-98) L 06/22/16 21:40 PT/INR, D-dimer PT 10.7 Seconds (9.4-12.1) 06/22/16 05:47 Abnormal lab findings: Abnormal lab results RBC 3.16 M/mcL (3.82-4.97) L 06/23/16 04:32 Hgb 9.7 g/dL (11.5-15.4) L 06/23/16 04:32 Hct 29.7 % (35.3-44.9) L 06/23/16 04:32 MPV 9.0 fL (9.4-12.4) L 06/23/16 04:32 Lymphocytes # 0.4 K/mcL (0.6-4.6) L 06/23/16 04:32 ABG pCO2 46 mmHg (35-45) H 06/22/16 21:40 ABG pO2 67 mmHg (85-104) L 06/22/16 21:40 ABG HCO3 27.2 mEQ/L (21-27) H 06/22/16 21:40 ABG Total CO2 28.6 mEq/L (20-26) H 06/22/16 21:40 ABG O2 Saturation 93 % (95-98) L 06/22/16 21:40 Potassium 4.7 mEq/L (3.5-4.5) H 06/23/16 04:32 BUN 24 mg/dL (7-20) H 06/23/16 04:32 Est GFR (Non-Af Amer) 54 (> 60) L 06/23/16 04:32 Glucose 139 mg/dL (70-99) H 06/23/16 04:32 Transferrin 155 mg/dL (180-382) L 06/23/16 04:32 Ferritin 670 ng/ml (5-204) H 06/23/16 04:32 - Microbiology Findings Microbiology Findings: Microbiology, Last 48 Hours 06/22/16 18:12 Gram Stain - Final Left Upper Lobe Lung - Clinical Findings Intake & Output: Intake & Output 06/22/16 06/23/16 06/23/16 23:59 07:59 15:59 Intake Total 1350 / 1350 300 / 300 Output Total 150 / 150 350 / 350 Balance 1200 / 1200 -50 / -50 Consult Discharge Plan - Plan Referrals: Lakeisha Marsh, WOOD PATTERN MAKER [Primary Care Provider] - 06/26/16 1:00 pm
--- NOTE | 2016-06-23 10:19 | Internal Med Progress Note ---
<Uche Mathias - Last Filed: 06/23/16 15:14> Date of Encounter: 06/23/16 Time of Encounter: 10:18 - Subjective Interval history: Ms. Cutler was seen and examined at bedside this morning. She was lying in bed asleep but arousable and in no apparent distress. Her BiPAP was off and she was on oxygen via nasal cannula. She denies current shortness of breath at rest , chest pain, abdominal pain or new complaints [facility] not [facility] additional diagnoses to note: ATELECTASIS of the left lung Past medical history significant for lung cancer Volume loss of left upper lobe concerning for malignancy Pulmonology performed a bronchoscopy which did not show malignant endobronchial obstruction however did show diffuse inflammatory changes throughout the entire airways CHRONIC RESPIRATORY FAILURE COPD on 3 L O2 at home Currently smoking 2 packs per day Continue supplemental oxygen, bronchodilators, systemic steroids TOBACCO ABUSE Ms. Valverde continues to smoke 2 packs per day despite history of lung cancer S/ P chemotherapy and radiation Smoking cessation counseling was reiterated ANEMIA Hemoglobin = 10.1 upon admission and trended down to 8.8 yesterday however this has stabilized at 9.7 this morning Transferrin is low, ferritin high B12 normal - Constitutional Vitals: Temp Pulse Resp BP Pulse Ox 98.2 F 94 17 132/69 97 06/23/16 06:58 06/23/16 06:58 06/23/16 06:58 06/23/16 06:58 06/23/16 06:58 General appearance: Present: cooperative, A&O X 3, no acute distress, answers questions appropriately - Head Head exam: Present: atraumatic, normocephalic - Eye Eye exam: Present: PERRL, conjuntiva pink, sclera anicteric - Neck Neck exam general surgery: Present: supple, trachea midline. Absent: lymphadenopathy - Respiratory Respiratory exam: Present: decreased breath sounds, rales. Absent: accessory muscle use, wheezes, tachypnea - Cardiovascular Cardiovascular exam: Present: RRR, +S1, +S2. Absent: diastolic murmur, gallop, rubs, systolic murmur - GI/Abdominal GI/Abdominal exam: Present: normal bowel sounds, soft, no peritoneal signs. Absent: distended, tenderness - Extremities Exam Extremities exam: Present: warm, radial pulses palpable and symetrical. Absent : calf tenderness, cyanotic, pedal edema - Neurological Exam Neurological exam: Present: CN II-XII intact, no focal deficits. Absent: pronater drift, facial droop, speech deficit - Skin Skin exam: Present: dry, intact Internal Medicine: Result - Labs CBC & Chem 7: 06/23/16 04:32 06/23/16 04:32 Labs: Short CBC 06/23/16 Range/Units 04:32 WBC 7.1 (4.3-11.1) K/mcL Hgb 9.7 L (11.5-15.4) g/dL Hct 29.7 L (35.3-44.9) % Plt Count 265 (140-400) K/mcL Neutrophils # 6.5 (1.6-8.9) K/mcL BMP 06/23/16 04:32 Sodium 139 Potassium 4.7 H Chloride 107 Carbon Dioxide 22 BUN 24 H Creatinine 1.02 Glucose 139 H Calcium 9.1 - ABG Interpretation ABG results: ABG ABG pH 7.38 pH Units (7.32-7.45) 06/22/16 21:40 ABG pCO2 46 mmHg (35-45) H 06/22/16 21:40 ABG pO2 67 mmHg (85-104) L 06/22/16 21:40 ABG O2 Saturation 93 % (95-98) L 06/22/16 21:40 PT/INR, D-dimer PT 10.7 Seconds (9.4-12.1) 06/22/16 05:47 - Impressions Impressions Chest X-Ray 06/22/16 06:00 IMPRESSION: 1. Stable right chest wall MediPort. 2. Stable focal opacity in the left upper lung zone. D/ / 06/22/2016 08:36:53 Kiera Mackey MD / [email or web address] Interpreting Provider: Kiera Mackey MD Consult Discharge Plan - Plan Referrals: Lakeisha Marsh, KST OPERATOR [Primary Care Provider] - 06/26/16 1:00 pm <Byron Painting - Last Filed: 06/23/16 16:09> - Constitutional Vitals: Temp Pulse Resp BP Pulse Ox 98.4 F 83 18 169/79 94 L 06/23/16 11:02 06/23/16 11:02 06/23/16 11:02 06/23/16 11:02 06/23/16 11:02 Internal Medicine: Result - Labs CBC & Chem 7: 06/23/16 04:32 06/23/16 04:32 Labs: Short CBC 06/23/16 Range/Units 04:32 WBC 7.1 (4.3-11.1) K/mcL Hgb 9.7 L (11.5-15.4) g/dL Hct 29.7 L (35.3-44.9) % Plt Count 265 (140-400) K/mcL Neutrophils # 6.5 (1.6-8.9) K/mcL BMP 06/23/16 04:32 Sodium 139 Potassium 4.7 H Chloride 107 Carbon Dioxide 22 BUN 24 H Creatinine 1.02 Glucose 139 H Calcium 9.1 - ABG Interpretation ABG results: ABG ABG pH 7.38 pH Units (7.32-7.45) 06/22/16 21:40 ABG pCO2 46 mmHg (35-45) H 06/22/16 21:40 ABG pO2 67 mmHg (85-104) L 06/22/16 21:40 ABG O2 Saturation 93 % (95-98) L 06/22/16 21:40 PT/INR, D-dimer PT 10.7 Seconds (9.4-12.1) 06/22/16 05:47 - Impressions Impressions Chest X-Ray 06/20/16 12:39 IMPRESSION: Stable appearance of extensive left parahilar atelectasis with volume loss. Small left effusion is unchanged. Emphysematous changes. D/ / 06/20/2016 16:24:04 Galo Hernandez MD / Haven Vargas Interpreting Provider: Galo Hernandez MD - Attending Attestation I examined this patient and my medical decision-making was reviewed with the Resident Physician, Dr. Mathias. I agree with the documented findings, disposition and treatment plan as described except to the extent set forth below. COPD exacerbation, will taper down steroids. Pt OT evl. SS eval. Uncontrolled HTN, will start amlodipine. D/C iv fluids.
[2016-06-23] MEDS: amLODIPine 5 MG TABLET PO SCH (12:54)
[2016-06-23] MEDS: Nystatin Cream 15 GM TUBE TP SCH ×2 (21:39→21:43)
[2016-06-23] MEDS: Mirtazapine 15 MG TABLET PO SCH (21:42)
[2016-06-24] MEDS: Acetylcysteine 10% 2 ML INHSOL IH SCH ×6 (04:15→23:20)
[2016-06-24] MEDS: Ipratropium/Albuterol Neb 3 ML IH SCH ×6 (04:15→23:19)
[2016-06-24 04:22] LABS: Hematocrit 27.7 % (35.3-44.9); Hemoglobin 9.1 g/dL (11.5-15.4); Immature Granulocytes % 1.5 % (0-4); Lymphocytes # 0.4 K/mcL (0.6-4.6); Mean Corpuscular HGB Conc 32.9 g/dL (31.6-35.5); Mean Corpuscular Hemoglobin 30.2 pg (28.0-33.3); Mean Platelet Volume 8.9 fL (9.4-12.4); Monocytes # 0.2 K/mcL (0.0-1.3); Monocytes % 3.6 %; Neutrophils # 4.8 K/mcL (1.6-8.9); Platelet Count 229 K/mcL (140-400); Red Blood Count 3.01 M/mcL (3.82-4.97); Red Cell Distribution Width 14.6 % (11.5-14.5); Segmented Neutrophils % 86.9 %
[2016-06-24 05:00] LABS: BUN/Creatinine Ratio 29 (6-26); Blood Urea Nitrogen 29 mg/dL (7-20); Calcium 9.4 mg/dL (8.6-10.8); Carbon Dioxide 25 mEq/L (19-29); Chloride 106 mEq/L (98-109); Glucose 169 mg/dL (70-99); Osmolality,Calculated 298 (280-300); Potassium 4.2 mEq/L (3.5-4.5); Sodium 139 mEq/L (136-145); eGFR For African Americans > 60 (> 60); eGFR For Non-African Americans 56 (> 60)
[2016-06-24] MEDS: *HR* Heparin 5,000 UNIT/ML VIAL SQ SCH ×2 (06:19→18:22)
[2016-06-24] MEDS: methylPREDNISolone 125 MG/2 ML VIAL IVP SCH (06:19)
[2016-06-24] MEDS: *HR* LORazepam 1 MG TABLET PO PRN ×2 (06:27→20:06)
[2016-06-24] MEDS: Budesonide/Formoterol 160/4.5 MDI IH SCH ×2 (08:15→20:41)
[2016-06-24] MEDS: Megestrol Acetate 400 MG/10 ML UDC PO SCH (08:27)
[2016-06-24] MEDS: amLODIPine 5 MG TABLET PO SCH (08:27)
[2016-06-24] MEDS: Aspirin 81 MG TAB.CHEW PO SCH (08:28)
[2016-06-24] MEDS: Nystatin Cream 15 GM TUBE TP SCH ×2 (08:33→20:11)
[2016-06-24] MEDS: predniSONE 20 MG TABLET PO SCH (11:17)
--- NOTE | 2016-06-24 11:26 | Internal Med Progress Note ---
<Uche Mathias - Last Filed: 06/24/16 11:23> Date of Encounter: 06/24/16 Time of Encounter: 11:23 - Subjective Interval history: Ms. Valverde was seen and examined at bedside this morning. She was lying in bed asleep but arousable and in no apparent distress. Her nasal cannula was off, breathing room air, O2 sat 92%. She denies current shortness of breath at rest , chest pain, abdominal pain or new complaints [facility] not allowing additional diagnoses to note: ATELECTASIS of the left lung Past medical history significant for lung cancer Volume loss of left upper lobe concerning for malignancy Pathology results from bronchoscopy pending CHRONIC RESPIRATORY FAILURE COPD on 3 L O2 at home Currently smoking 2 packs per day Continue supplemental oxygen, bronchodilators, systemic steroids We will transition IV Solu-Medrol to oral prednisone TOBACCO ABUSE Ms. Valverde continues to smoke 2 packs per day despite history of lung cancer S/ P chemotherapy and radiation Smoking cessation counseling was reiterated ANEMIA Hemoglobin has been stable Transferrin is low, ferritin high suggesting anemia of chronic disease/ inflammation - Constitutional Vitals: Temp Pulse Resp BP Pulse Ox 99.1 F 98 22 165/84 94 L 06/24/16 07:43 06/24/16 07:43 06/24/16 07:43 06/24/16 07:43 06/24/16 07:43 General appearance: Present: cooperative, A&O X 3, no acute distress, answers questions appropriately - Head Head exam: Present: atraumatic, normocephalic - Eye Eye exam: Present: PERRL, conjuntiva pink, sclera anicteric Pupils: Present: PERRL - Neck Neck exam general surgery: Present: supple, trachea midline. Absent: lymphadenopathy - Respiratory Respiratory exam: Present: decreased breath sounds, rales. Absent: accessory muscle use, rhonchi, wheezes - Cardiovascular Cardiovascular exam: Present: RRR, +S1, +S2. Absent: diastolic murmur, gallop, rubs, systolic murmur - GI/Abdominal GI/Abdominal exam: Present: normal bowel sounds, soft, no peritoneal signs. Absent: distended, tenderness - Extremities Exam Extremities exam: Present: warm, radial pulses palpable and symetrical. Absent : calf tenderness, cyanotic, pedal edema - Neurological Exam Neurological exam: Present: CN II-XII intact, oriented X3, no focal deficits. Absent: pronater drift, facial droop, speech deficit - Skin Skin exam: Present: dry, intact Internal Medicine: Result - Labs CBC & Chem 7: 06/24/16 04:01 06/24/16 04:01 Labs: Short CBC 06/24/16 Range/Units 04:01 WBC 5.5 (4.3-11.1) K/mcL Hgb 9.1 L (11.5-15.4) g/dL Hct 27.7 L (35.3-44.9) % Plt Count 229 (140-400) K/mcL Neutrophils # 4.8 (1.6-8.9) K/mcL BMP 06/24/16 04:01 Sodium 139 Potassium 4.2 Chloride 106 Carbon Dioxide 25 BUN 29 H Creatinine 0.99 Glucose 169 H Calcium 9.4 - ABG Interpretation ABG results: ABG ABG pH 7.38 pH Units (7.32-7.45) 06/22/16 21:40 ABG pCO2 46 mmHg (35-45) H 06/22/16 21:40 ABG pO2 67 mmHg (85-104) L 06/22/16 21:40 ABG O2 Saturation 93 % (95-98) L 06/22/16 21:40 PT/INR, D-dimer PT 10.7 Seconds (9.4-12.1) 06/22/16 05:47 - Impressions Impressions Chest X-Ray 06/20/16 12:39 IMPRESSION: Stable appearance of extensive left parahilar atelectasis with volume loss. Small left effusion is unchanged. Emphysematous changes. D/ / 06/20/2016 16:24:04 Galo Hernandez MD / Haven Vargas Interpreting Provider: Galo Hernandez MD Consult Discharge Plan - Plan Referrals: Lakeisha Marsh, PRINCIPAL PROCESS ENGINEER [Primary Care Provider] - 06/26/16 1:00 pm <Byron Painting - Last Filed: 06/24/16 14:08> - Constitutional Vitals: Temp Pulse Resp BP Pulse Ox 98.2 F 101 16 157/80 95 06/24/16 11:39 06/24/16 11:39 06/24/16 12:49 06/24/16 11:39 06/24/16 12:49 Internal Medicine: Result - Labs CBC & Chem 7: 06/24/16 04:01 06/24/16 04:01 Labs: Short CBC 06/24/16 Range/Units 04:01 WBC 5.5 (4.3-11.1) K/mcL Hgb 9.1 L (11.5-15.4) g/dL Hct 27.7 L (35.3-44.9) % Plt Count 229 (140-400) K/mcL Neutrophils # 4.8 (1.6-8.9) K/mcL BMP 06/24/16 04:01 Sodium 139 Potassium 4.2 Chloride 106 Carbon Dioxide 25 BUN 29 H Creatinine 0.99 Glucose 169 H Calcium 9.4 - ABG Interpretation ABG results: ABG ABG pH 7.38 pH Units (7.32-7.45) 06/22/16 21:40 ABG pCO2 46 mmHg (35-45) H 06/22/16 21:40 ABG pO2 67 mmHg (85-104) L 06/22/16 21:40 ABG O2 Saturation 93 % (95-98) L 06/22/16 21:40 PT/INR, D-dimer PT 10.7 Seconds (9.4-12.1) 06/22/16 05:47 - Attending Attestation I examined this patient and my medical decision-making was reviewed with the EDITORIAL DIRECTOR/PA/Advanced Practice Nurse/Resident Physician. I agree with the documented findings, disposition and treatment plan as described except to the extent set forth below. Seen and examined. Continue with systemic steroids, transition to po prednisone.
[2016-06-24] MEDS: Acetaminophen 325 MG TABLET PO PRN (15:09)
[2016-06-24] MEDS: Mirtazapine 15 MG TABLET PO SCH (20:06)
[2016-06-25] MEDS: Ipratropium/Albuterol Neb 3 ML IH SCH ×5 (05:52→20:03)
[2016-06-25] MEDS: Acetylcysteine 10% 2 ML INHSOL IH SCH ×5 (05:52→20:03)
[2016-06-25] MEDS: *HR* Heparin 5,000 UNIT/ML VIAL SQ SCH ×2 (06:09→18:17)
[2016-06-25 06:19] LABS: BUN/Creatinine Ratio 31 (6-26); Calcium 9.2 mg/dL (8.6-10.8); Carbon Dioxide 24 mEq/L (19-29); Chloride 108 mEq/L (98-109); Glucose 136 mg/dL (70-99); Osmolality,Calculated 301 (280-300); Potassium 3.9 mEq/L (3.5-4.5); Sodium 141 mEq/L (136-145); eGFR For African Americans > 60 (> 60); eGFR For Non-African Americans 53 (> 60)
[2016-06-25 06:22] LABS: Basophils % 0.1 %; Hematocrit 28.5 % (35.3-44.9); Hemoglobin 9.5 g/dL (11.5-15.4); Immature Granulocytes % 2.6 % (0-4); Immature Platelets 2.2 % (1.1-6.1); Lymphocytes # 0.8 K/mcL (0.6-4.6); Lymphocytes % 8.7 %; Mean Corpuscular HGB Conc 33.3 g/dL (31.6-35.5); Mean Corpuscular Hemoglobin 30.7 pg (28.0-33.3); Mean Corpuscular Volume 92.2 fL (83.0-100.0); Mean Platelet Volume 9.3 fL (9.4-12.4); Monocytes # 0.8 K/mcL (0.0-1.3); Monocytes % 8.5 %; Neutrophils # 7.5 K/mcL (1.6-8.9); Platelet Count 321 K/mcL (140-400); Red Blood Count 3.09 M/mcL (3.82-4.97); Red Cell Distribution Width 14.7 % (11.5-14.5); Segmented Neutrophils % 80.1 %
--- NOTE | 2016-06-25 06:23 | Internal Med Progress Note ---
<Uche Mathias - Last Filed: 06/25/16 18:33> Date of Encounter: 06/25/16 Time of Encounter: 06:17 - Subjective Interval history: Ms. Valverde was seen and examined at bedside this morning. She was lying in bed asleep but arousable and in no apparent distress. She was using nasal cannula with O2 sat = 95%. She says her shortness of breath has worsened somewhat since yesterday. She denies chest pain, abdominal pain or other new complaints [facility] addition of diagnoses to note): ATELECTASIS of the left lung Past medical history significant for lung cancer Volume loss of left upper lobe concerning for malignancy Pathology results from bronchoscopy are still pending as of this morning CHRONIC RESPIRATORY FAILURE O2 sats stable COPD on 3 L O2 at home Currently smoking 2 packs per day Continue supplemental oxygen, bronchodilators, systemic steroids IV Solu-Medrol changed to oral prednisone yesterday with some clinical deterioration Change back to IV steroids and will taper down TOBACCO ABUSE Ms. Valverde continues to smoke 2 packs per day despite history of lung cancer S/ P chemotherapy and radiation Smoking cessation counseling was reiterated again today ANEMIA Hemoglobin has been stable Transferrin is low, ferritin high suggesting anemia of chronic disease/ inflammation - Constitutional Vitals: Temp Pulse Resp BP Pulse Ox 98.1 F 94 18 137/78 94 L 06/24/16 23:07 06/24/16 23:07 06/24/16 23:21 06/24/16 23:07 06/24/16 23:21 General appearance: Present: cooperative, A&O X 3, no acute distress, answers questions appropriately - Head Head exam: Present: atraumatic, normocephalic - Eye Eye exam: Present: PERRL, conjuntiva pink, sclera anicteric Pupils: Present: PERRL - Neck Neck exam general surgery: Present: supple, trachea midline. Absent: lymphadenopathy - Respiratory Respiratory exam: Present: decreased breath sounds, rales, wheezes. Absent: accessory muscle use, rhonchi - Cardiovascular Cardiovascular exam: Present: RRR, +S1, +S2. Absent: diastolic murmur, gallop, rubs, systolic murmur - GI/Abdominal GI/Abdominal exam: Present: normal bowel sounds, soft, no peritoneal signs. Absent: distended, tenderness - Extremities Exam Extremities exam: Present: warm, radial pulses palpable and symetrical. Absent : calf tenderness, cyanotic, pedal edema - Neurological Exam Neurological exam: Present: CN II-XII intact, oriented X3, no focal deficits. Absent: pronater drift, facial droop, speech deficit - Skin Skin exam: Present: dry, intact Internal Medicine: Result - Labs CBC & Chem 7: 06/25/16 04:41 06/25/16 04:41 - ABG Interpretation ABG results: ABG ABG pH 7.38 pH Units (7.32-7.45) 06/22/16 21:40 ABG pCO2 46 mmHg (35-45) H 06/22/16 21:40 ABG pO2 67 mmHg (85-104) L 06/22/16 21:40 ABG O2 Saturation 93 % (95-98) L 06/22/16 21:40 PT/INR, D-dimer PT 10.7 Seconds (9.4-12.1) 06/22/16 05:47 Consult Discharge Plan - Plan Referrals: Lakeisha Marsh CNP [Primary Care Provider] - 06/26/16 1:00 pm <Byron Painting - Last Filed: 06/26/16 08:55> - Constitutional Vitals: Temp Pulse Resp BP Pulse Ox 98.3 F 99 18 180/79 94 L 06/26/16 06:42 06/26/16 06:42 06/26/16 08:04 06/26/16 06:42 06/26/16 08:04 Internal Medicine: Result - Labs CBC & Chem 7: 06/26/16 03:59 06/26/16 03:59 Labs: Short CBC 06/26/16 Range/Units 03:59 WBC 5.9 (4.3-11.1) K/mcL Hgb 9.5 L (11.5-15.4) g/dL Hct 28.5 L (35.3-44.9) % Plt Count 269 (140-400) K/mcL Neutrophils # 5.0 (1.6-8.9) K/mcL BMP 06/26/16 03:59 Sodium 140 Potassium 4.3 Chloride 106 Carbon Dioxide 26 BUN 31 H Creatinine 1.10 Glucose 221 H Calcium 9.1 - ABG Interpretation ABG results: ABG ABG pH 7.38 pH Units (7.32-7.45) 06/22/16 21:40 ABG pCO2 46 mmHg (35-45) H 06/22/16 21:40 ABG pO2 67 mmHg (85-104) L 06/22/16 21:40 ABG O2 Saturation 93 % (95-98) L 06/22/16 21:40 PT/INR, D-dimer PT 10.7 Seconds (9.4-12.1) 06/22/16 05:47 - Attending Attestation I examined this patient and my medical decision-making was reviewed with the PRIVATE EYE/PA/Advanced Practice Nurse/Resident Physician. I agree with the documented findings, disposition and treatment plan as described except to the extent set forth below. Seen and examined. Patient user of cpap at home, refuses to use bipap while inhouse. Continue steroids and aerosol therapy.
[2016-06-25 06:26] LABS: Blood Urea Nitrogen 32 mg/dL (7-20)
[2016-06-25] MEDS: Budesonide/Formoterol 160/4.5 MDI IH SCH ×2 (07:54→20:03)
[2016-06-25] MEDS: Megestrol Acetate 400 MG/10 ML UDC PO SCH (08:49)
[2016-06-25] MEDS: Aspirin 81 MG TAB.CHEW PO SCH (08:51)
[2016-06-25] MEDS: predniSONE 20 MG TABLET PO SCH (08:52)
[2016-06-25] MEDS: amLODIPine 5 MG TABLET PO SCH (08:52)
[2016-06-25] MEDS: Nystatin Cream 15 GM TUBE TP SCH ×2 (08:53→20:59)
[2016-06-25] MEDS: *HR* LORazepam 1 MG TABLET PO PRN ×2 (08:57→20:58)
[2016-06-25] MEDS: Acetaminophen 325 MG TABLET PO PRN ×2 (08:57→20:57)
[2016-06-25] MEDS ORDERED: predniSONE 20 MG TABLET PO SCH (11:15)
[2016-06-25] MEDS: methylPREDNISolone 125 MG/2 ML VIAL IVP SCH (15:57)
[2016-06-25] MEDS: Mirtazapine 15 MG TABLET PO SCH (20:58)
[2016-06-26] MEDS: Acetylcysteine 10% 2 ML INHSOL IH SCH ×6 (00:36→20:22)
[2016-06-26] MEDS: Ipratropium/Albuterol Neb 3 ML IH SCH ×6 (00:36→20:22)
[2016-06-26] MEDS: methylPREDNISolone 125 MG/2 ML VIAL IVP SCH ×2 (01:30→12:55)
[2016-06-26 04:51] LABS: Basophils % 0.2 %; Hematocrit 28.5 % (35.3-44.9); Hemoglobin 9.5 g/dL (11.5-15.4); Immature Granulocytes % 4.3 % (0-4); Lymphocytes # 0.4 K/mcL (0.6-4.6); Lymphocytes % 6.6 %; Mean Corpuscular HGB Conc 33.3 g/dL (31.6-35.5); Mean Corpuscular Hemoglobin 30.7 pg (28.0-33.3); Mean Corpuscular Volume 92.2 fL (83.0-100.0); Mean Platelet Volume 9.5 fL (9.4-12.4); Monocytes # 0.2 K/mcL (0.0-1.3); Monocytes % 3.7 %; Platelet Count 269 K/mcL (140-400); Red Blood Count 3.09 M/mcL (3.82-4.97); Red Cell Distribution Width 14.8 % (11.5-14.5); Segmented Neutrophils % 85.2 %
[2016-06-26 05:01] LABS: Calcium 9.1 mg/dL (8.6-10.8); Potassium 4.3 mEq/L (3.5-4.5)
[2016-06-26] MEDS: *HR* Heparin 5,000 UNIT/ML VIAL SQ SCH ×2 (06:22→18:24)
--- NOTE | 2016-06-26 06:31 | Internal Med Progress Note ---
<Uche Mathias - Last Filed: 06/26/16 09:50> Date of Encounter: 06/26/16 Time of Encounter: 06:31 - Subjective Interval history: Ms. Valverde was seen and examined at bedside this morning. She was awake and alert, sitting up eating breakfast. She was using nasal cannula with O2 sat = 95%. She says her shortness of breath has improved relative to yesterday. She denies chest pain, abdominal pain or other new complaints ([facility] not allowing addition of diagnoses to note): ATELECTASIS of the left lung Past medical history significant for lung cancer Pathology results from bronchoscopy were normal CHRONIC RESPIRATORY FAILURE O2 sats remain stable COPD on 3 L O2 at home Currently smoking 2 packs per day Continue supplemental oxygen, bronchodilators, systemic steroids Breathing has improved with change back to IV steroids Will taper down TOBACCO ABUSE Ms. Valverde continues to smoke 2 packs per day despite history of lung cancer S/ P chemotherapy and radiation We discussed this again today and smoking cessation was encouraged ANEMIA Hemoglobin has been stable, 9.5 this morning Transferrin is low, ferritin high suggesting anemia of chronic disease/ inflammation - Constitutional Vitals: Temp Pulse Resp BP Pulse Ox 98.6 F 103 32 176/72 95 06/26/16 03:52 06/26/16 03:52 06/26/16 04:25 06/26/16 03:52 06/26/16 04:25 General appearance: Present: cooperative, A&O X 3, no acute distress, answers questions appropriately - Head Head exam: Present: atraumatic, normocephalic - Eye Eye exam: Present: PERRL, conjuntiva pink, sclera anicteric Pupils: Present: PERRL - Neck Neck exam general surgery: Present: supple, trachea midline. Absent: lymphadenopathy - Respiratory Respiratory exam: Absent: accessory muscle use, rales, rhonchi Additional comments: Decreased breath sounds and diffuse wheezes although these have both improved relative to past couple of days - Cardiovascular Cardiovascular exam: Present: RRR, +S1, +S2. Absent: diastolic murmur, gallop, rubs, systolic murmur - GI/Abdominal GI/Abdominal exam: Present: normal bowel sounds, soft, no peritoneal signs. Absent: distended, tenderness - Extremities Exam Extremities exam: Present: warm, radial pulses palpable and symetrical. Absent : calf tenderness, cyanotic, pedal edema - Neurological Exam Neurological exam: Present: CN II-XII intact, oriented X3, no focal deficits. Absent: pronater drift, facial droop, speech deficit - Skin Skin exam: Present: dry, intact Internal Medicine: Result - Labs CBC & Chem 7: 06/26/16 03:59 06/26/16 03:59 Labs: Short CBC 06/26/16 Range/Units 03:59 WBC 5.9 (4.3-11.1) K/mcL Hgb 9.5 L (11.5-15.4) g/dL Hct 28.5 L (35.3-44.9) % Plt Count 269 (140-400) K/mcL Neutrophils # 5.0 (1.6-8.9) K/mcL BMP 06/26/16 03:59 Sodium 140 Potassium 4.3 Chloride 106 Carbon Dioxide 26 BUN 31 H Creatinine 1.10 Glucose 221 H Calcium 9.1 - ABG Interpretation ABG results: ABG ABG pH 7.38 pH Units (7.32-7.45) 06/22/16 21:40 ABG pCO2 46 mmHg (35-45) H 06/22/16 21:40 ABG pO2 67 mmHg (85-104) L 06/22/16 21:40 ABG O2 Saturation 93 % (95-98) L 06/22/16 21:40 PT/INR, D-dimer PT 10.7 Seconds (9.4-12.1) 06/22/16 05:47 Consult Discharge Plan - Plan Referrals: Lakeisha Marsh, HOME IMPROVEMENT ADVISOR [Primary Care Provider] - 07/03/16 1:00 pm <Byron Painting - Last Filed: 06/26/16 16:00> - Constitutional Vitals: Temp Pulse Resp BP Pulse Ox 98.0 F 106 34 156/73 94 L 06/26/16 14:30 06/26/16 14:30 06/26/16 14:30 06/26/16 14:30 06/26/16 14:30 Internal Medicine: Result - Labs CBC & Chem 7: 06/26/16 03:59 06/26/16 03:59 Labs: Short CBC 06/26/16 Range/Units 03:59 WBC 5.9 (4.3-11.1) K/mcL Hgb 9.5 L (11.5-15.4) g/dL Hct 28.5 L (35.3-44.9) % Plt Count 269 (140-400) K/mcL Neutrophils # 5.0 (1.6-8.9) K/mcL BMP 06/26/16 03:59 Sodium 140 Potassium 4.3 Chloride 106 Carbon Dioxide 26 BUN 31 H Creatinine 1.10 Glucose 221 H Calcium 9.1 - ABG Interpretation ABG results: ABG ABG pH 7.38 pH Units (7.32-7.45) 06/22/16 21:40 ABG pCO2 46 mmHg (35-45) H 06/22/16 21:40 ABG pO2 67 mmHg (85-104) L 06/22/16 21:40 ABG O2 Saturation 93 % (95-98) L 06/22/16 21:40 PT/INR, D-dimer PT 10.7 Seconds (9.4-12.1) 06/22/16 05:47 - Attending Attestation I examined this patient and my medical decision-making was reviewed with the CARPENTER PACKING/PA/Advanced Practice Nurse/Resident Physician. I agree with the documented findings, disposition and treatment plan as described except to the extent set forth below. Continue with treatment for advanced copd. REfsues to use bipap.
[2016-06-26] MEDS: Budesonide/Formoterol 160/4.5 MDI IH SCH ×2 (08:04→20:22)
[2016-06-26] MEDS: Megestrol Acetate 400 MG/10 ML UDC PO SCH (08:38)
[2016-06-26] MEDS: amLODIPine 5 MG TABLET PO SCH (08:39)
[2016-06-26] MEDS: Aspirin 81 MG TAB.CHEW PO SCH (08:39)
[2016-06-26] MEDS: *HR* LORazepam 1 MG TABLET PO PRN ×2 (08:39→21:19)
[2016-06-26] MEDS: Acetaminophen 325 MG TABLET PO PRN (08:59)
[2016-06-26] MEDS: Nystatin Cream 15 GM TUBE TP SCH ×2 (12:56→21:16)
[2016-06-26] MEDS: Mirtazapine 15 MG TABLET PO SCH (21:16)
[2016-06-27] MEDS: Ipratropium/Albuterol Neb 3 ML IH SCH ×7 (00:03→22:52)
[2016-06-27] MEDS: Acetylcysteine 10% 2 ML INHSOL IH SCH ×7 (00:04→22:52)
[2016-06-27] MEDS: methylPREDNISolone 125 MG/2 ML VIAL IVP SCH ×2 (03:15→12:45)
[2016-06-27 05:22] LABS: Basophils % 0.1 %; Hematocrit 29.2 % (35.3-44.9); Hemoglobin 9.7 g/dL (11.5-15.4); Lymphocytes # 0.7 K/mcL (0.6-4.6); Lymphocytes % 7.7 %; Mean Corpuscular HGB Conc 33.2 g/dL (31.6-35.5); Mean Corpuscular Hemoglobin 30.2 pg (28.0-33.3); Mean Platelet Volume 9.2 fL (9.4-12.4); Monocytes # 0.8 K/mcL (0.0-1.3); Monocytes % 8.3 %; Neutrophils # 7.2 K/mcL (1.6-8.9); Nucleated Red Blood Cells 0.2 /100 WBC (0); Platelet Count 315 K/mcL (140-400); Red Blood Count 3.21 M/mcL (3.82-4.97); Red Cell Distribution Width 15.2 % (11.5-14.5); Segmented Neutrophils % 78.9 %
[2016-06-27 05:31] LABS: BUN/Creatinine Ratio 31 (6-26); Blood Urea Nitrogen 31 mg/dL (7-20); Calcium 9.2 mg/dL (8.6-10.8); Carbon Dioxide 26 mEq/L (19-29); Chloride 105 mEq/L (98-109); Glucose 146 mg/dL (70-99); Osmolality,Calculated 297 (280-300); Potassium 4.3 mEq/L (3.5-4.5); Sodium 139 mEq/L (136-145); eGFR For African Americans > 60 (> 60); eGFR For Non-African Americans 55 (> 60)
[2016-06-27] MEDS: *HR* Heparin 5,000 UNIT/ML VIAL SQ SCH ×2 (06:35→17:55)
[2016-06-27] MEDS: Budesonide/Formoterol 160/4.5 MDI IH SCH ×2 (08:05→19:40)
--- NOTE | 2016-06-27 09:03 | Internal Med Progress Note ---
<Uche Mahtias - Last Filed: 06/27/16 08:42> Date of Encounter: 06/27/16 Time of Encounter: 08:42 - Subjective Interval history: Ms. Valverde was seen and examined at bedside this morning. She was awake and alert, sitting up eating breakfast. She was using nasal cannula with O2 sat = 95%. She says her shortness of breath is about the same as yesterday. She denies chest pain, abdominal pain or other new complaints. She continues to refuse BiPAP ([employer] not allowing addition of diagnoses to note): ATELECTASIS of the left lung Past medical history significant for lung cancer Pathology results from bronchoscopy were normal CHRONIC RESPIRATORY FAILURE O2 sats remain stable COPD on 3 L O2 at home Currently smoking 2 packs per day Continue supplemental oxygen, bronchodilators, systemic steroids Breathing has improved with change back to IV steroids Will taper down TOBACCO ABUSE Ms. Valverde continues to smoke 2 packs per day despite history of lung cancer S/ P chemotherapy and radiation ANEMIA Hemoglobin has been stable, 9.5 this morning Transferrin is low, ferritin high suggesting anemia of chronic disease/ inflammation DVT PROPHYLAXIS Continue heparin - Constitutional Vitals: Temp Pulse Resp BP Pulse Ox 98.2 F 110 22 168/68 95 06/27/16 06:28 06/27/16 06:28 06/27/16 08:05 06/27/16 06:28 06/27/16 08:05 General appearance: Present: cooperative, A&O X 3, no acute distress, answers questions appropriately - Head Head exam: Present: atraumatic, normocephalic - Eye Eye exam: Present: PERRL, conjuntiva pink, sclera anicteric Pupils: Present: PERRL - Neck Neck exam general surgery: Present: supple, trachea midline. Absent: lymphadenopathy - Respiratory Respiratory exam: Present: decreased breath sounds, wheezes. Absent: accessory muscle use, respiratory distress - Cardiovascular Cardiovascular exam: Present: RRR, +S1, +S2. Absent: diastolic murmur, gallop, rubs, systolic murmur - GI/Abdominal GI/Abdominal exam: Present: normal bowel sounds, soft, no peritoneal signs. Absent: distended, tenderness - Extremities Exam Extremities exam: Present: warm, radial pulses palpable and symetrical. Absent : calf tenderness, cyanotic, pedal edema - Neurological Exam Neurological exam: Present: CN II-XII intact, oriented X3, no focal deficits. Absent: pronater drift, facial droop, speech deficit - Skin Skin exam: Present: dry, intact Internal Medicine: Result - Labs CBC & Chem 7: 06/27/16 04:17 06/27/16 04:17 Labs: Short CBC 06/27/16 Range/Units 04:17 WBC 9.1 D (4.3-11.1) K/mcL Hgb 9.7 L (11.5-15.4) g/dL Hct 29.2 L (35.3-44.9) % Plt Count 315 (140-400) K/mcL Neutrophils # 7.2 (1.6-8.9) K/mcL BMP 06/27/16 04:17 Sodium 139 Potassium 4.3 Chloride 105 Carbon Dioxide 26 BUN 31 H Creatinine 1.00 Glucose 146 H Calcium 9.2 - ABG Interpretation ABG results: ABG ABG pH 7.38 pH Units (7.32-7.45) 06/22/16 21:40 ABG pCO2 46 mmHg (35-45) H 06/22/16 21:40 ABG pO2 67 mmHg (85-104) L 06/22/16 21:40 ABG O2 Saturation 93 % (95-98) L 06/22/16 21:40 PT/INR, D-dimer PT 10.7 Seconds (9.4-12.1) 06/22/16 05:47 Consult Discharge Plan - Plan Referrals: Lakeisha Marsh, LOBBY CONCIERGE [Primary Care Provider] - 07/03/16 1:00 pm <Byron Painting - Last Filed: 06/27/16 16:47> - Constitutional Vitals: Temp Pulse Resp BP Pulse Ox 98.0 F 99 20 152/71 95 06/27/16 15:02 06/27/16 15:02 06/27/16 15:35 06/27/16 11:02 06/27/16 15:35 Internal Medicine: Result - Labs CBC & Chem 7: 06/27/16 04:17 06/27/16 04:17 Labs: Short CBC 06/27/16 Range/Units 04:17 WBC 9.1 D (4.3-11.1) K/mcL Hgb 9.7 L (11.5-15.4) g/dL Hct 29.2 L (35.3-44.9) % Plt Count 315 (140-400) K/mcL Neutrophils # 7.2 (1.6-8.9) K/mcL BMP 06/27/16 04:17 Sodium 139 Potassium 4.3 Chloride 105 Carbon Dioxide 26 BUN 31 H Creatinine 1.00 Glucose 146 H Calcium 9.2 - ABG Interpretation ABG results: ABG ABG pH 7.38 pH Units (7.32-7.45) 06/22/16 21:40 ABG pCO2 46 mmHg (35-45) H 06/22/16 21:40 ABG pO2 67 mmHg (85-104) L 06/22/16 21:40 ABG O2 Saturation 93 % (95-98) L 06/22/16 21:40 PT/INR, D-dimer PT 10.7 Seconds (9.4-12.1) 06/22/16 05:47 - Impressions Impressions Chest X-Ray 06/27/16 08:04 IMPRESSION: Increased partial collapse of the perihilar left upper and left lower lobes with increased mediastinal shift to the left due to volume loss. Underlying pneumonia could be present. D/ / Mak Paez MD / Mak Paez MD Interpreting Provider: Mak Paez MD - Attending Attestation I examined this patient and my medical decision-making was reviewed with the IMPROVEMENT DIRECTOR/PA/Advanced Practice Nurse/Resident Physician. I agree with the documented findings, disposition and treatment plan as described except to the extent set forth below. COPD exacerbation in a patient with severe copd and very uncompliant with therapy and active smoker. Still needs iv meds. Taper down steroids. High risk of respiratory failure.
[2016-06-27] MEDS: Acetaminophen 325 MG TABLET PO PRN (09:48)
[2016-06-27] MEDS: Megestrol Acetate 400 MG/10 ML UDC PO SCH (09:48)
[2016-06-27] MEDS: *HR* LORazepam 1 MG TABLET PO PRN ×2 (09:49→21:28)
[2016-06-27] MEDS: Aspirin 81 MG TAB.CHEW PO SCH (09:49)
[2016-06-27] MEDS: amLODIPine 5 MG TABLET PO SCH (09:50)
[2016-06-27] MEDS: Nystatin Cream 15 GM TUBE TP SCH ×2 (17:54→21:35)
[2016-06-27] MEDS: Mirtazapine 15 MG TABLET PO SCH (21:34)
[2016-06-28] MEDS: MethylPREDNISolone 40 MG/ML VIAL IVP SCH ×2 (01:21→12:22)
[2016-06-28] MEDS: Acetylcysteine 10% 2 ML INHSOL IH SCH ×6 (04:10→23:03)
[2016-06-28] MEDS: Ipratropium/Albuterol Neb 3 ML IH SCH ×6 (04:10→23:03)
[2016-06-28 04:25] LABS: Hematocrit 28.9 % (35.3-44.9); Hemoglobin 9.7 g/dL (11.5-15.4); Lymphocytes # 0.4 K/mcL (0.6-4.6); Mean Corpuscular HGB Conc 33.6 g/dL (31.6-35.5); Mean Corpuscular Hemoglobin 30.8 pg (28.0-33.3); Mean Corpuscular Volume 91.7 fL (83.0-100.0); Mean Platelet Volume 9.5 fL (9.4-12.4); Nucleated Red Blood Cells 0.2 /100 WBC (0); Platelet Count 283 K/mcL (140-400); Red Blood Count 3.15 M/mcL (3.82-4.97); Red Cell Distribution Width 15.4 % (11.5-14.5)
[2016-06-28 04:48] LABS: BUN/Creatinine Ratio 29 (6-26); Blood Urea Nitrogen 31 mg/dL (7-20); Carbon Dioxide 24 mEq/L (19-29); Chloride 105 mEq/L (98-109); Glucose 157 mg/dL (70-99); Monocytes # 0.7 K/mcL (0.0-1.3); Neutrophils # 7.7 K/mcL (1.6-8.9); Osmolality,Calculated 296 (280-300); Platelet Estimate Normal (Normal); Potassium 4.6 mEq/L (3.5-4.5); Sodium 138 mEq/L (136-145); eGFR For African Americans > 60 (> 60); eGFR For Non-African Americans 50 (> 60)
[2016-06-28] MEDS: *HR* Heparin 5,000 UNIT/ML VIAL SQ SCH ×2 (06:33→19:13)
[2016-06-28] MEDS: Budesonide/Formoterol 160/4.5 MDI IH SCH ×2 (07:22→20:58)
[2016-06-28] MEDS: *HR* LORazepam 1 MG TABLET PO PRN ×2 (08:24→21:23)
[2016-06-28] MEDS: amLODIPine 5 MG TABLET PO SCH (08:24)
[2016-06-28] MEDS: Aspirin 81 MG TAB.CHEW PO SCH (08:24)
[2016-06-28] MEDS: Megestrol Acetate 400 MG/10 ML UDC PO SCH (08:24)
[2016-06-28] MEDS: Nystatin Cream 15 GM TUBE TP SCH ×2 (08:25→21:30)
--- NOTE | 2016-06-28 09:03 | Internal Med Progress Note ---
<Uche Mathias - Last Filed: 06/28/16 15:52> Date of Encounter: 06/28/16 Time of Encounter: 09:03 - Subjective Interval history: Ms. Valverde was seen and examined at bedside this morning. She was awake and alert, sitting up in no apparent distress. She says her shortness of breath is about the same as yesterday. She denies chest pain, abdominal pain or other new complaints. She continues to refuse BiPAP ([employer] not allowing addition of diagnoses to note): ATELECTASIS of the left lung Past medical history significant for lung cancer Pathology results from bronchoscopy were normal CHRONIC RESPIRATORY FAILURE Patient has refused to cooperate with recommendations to quit smoking, comply with BiPAP, and participate in rehabilitation O2 sats remain stable COPD on 3 L O2 at home Currently smoking 2 packs per day at home Continue supplemental oxygen, bronchodilators, systemic steroids Breathing has been stable with decrease in dose of Solu-Medrol Will change to by mouth TOBACCO ABUSE Ms. Valverde continues to smoke 2 packs per day despite history of lung cancer S/ P chemotherapy and radiation Discussed importance of quitting again today ANEMIA Hemoglobin has been stable, 9.7 this morning Transferrin is low, ferritin high suggesting anemia of chronic disease/ inflammation DVT PROPHYLAXIS Continue heparin - Constitutional Vitals: Temp Pulse Resp BP Pulse Ox 98.1 F 97 20 169/79 96 06/28/16 06:45 06/28/16 06:45 06/28/16 07:27 06/28/16 03:28 06/28/16 07:27 General appearance: Present: cooperative, A&O X 3, no acute distress, answers questions appropriately - Head Head exam: Present: atraumatic, normocephalic - Eye Eye exam: Present: PERRL, conjuntiva pink, sclera anicteric Pupils: Present: PERRL - Neck Neck exam general surgery: Present: supple, trachea midline. Absent: lymphadenopathy - Respiratory Respiratory exam: Present: decreased breath sounds. Absent: accessory muscle use, rales, rhonchi Additional comments: diffuse wheezed, improving - Cardiovascular Cardiovascular exam: Present: RRR, +S1, +S2. Absent: diastolic murmur, gallop, rubs, systolic murmur - GI/Abdominal GI/Abdominal exam: Present: normal bowel sounds, soft, no peritoneal signs. Absent: distended, tenderness - Extremities Exam Extremities exam: Present: warm, radial pulses palpable and symetrical. Absent : calf tenderness, cyanotic, pedal edema - Neurological Exam Neurological exam: Present: CN II-XII intact, oriented X3, no focal deficits. Absent: pronater drift, facial droop, speech deficit - Skin Skin exam: Present: dry, intact Internal Medicine: Result - Labs CBC & Chem 7: 06/28/16 03:33 06/28/16 03:33 Labs: Short CBC 06/28/16 Range/Units 03:33 WBC 8.7 (4.3-11.1) K/mcL Hgb 9.7 L (11.5-15.4) g/dL Hct 28.9 L (35.3-44.9) % Plt Count 283 (140-400) K/mcL Neutrophils # 7.7 (1.6-8.9) K/mcL BMP 06/28/16 03:33 Sodium 138 Potassium 4.6 H Chloride 105 Carbon Dioxide 24 BUN 31 H Creatinine 1.08 Glucose 157 H Calcium 9.0 - ABG Interpretation ABG results: ABG ABG pH 7.38 pH Units (7.32-7.45) 06/22/16 21:40 ABG pCO2 46 mmHg (35-45) H 06/22/16 21:40 ABG pO2 67 mmHg (85-104) L 06/22/16 21:40 ABG O2 Saturation 93 % (95-98) L 06/22/16 21:40 PT/INR, D-dimer PT 10.7 Seconds (9.4-12.1) 06/22/16 05:47 - Impressions Impressions Chest X-Ray 06/27/16 08:04 IMPRESSION: Increased partial collapse of the perihilar left upper and left lower lobes with increased mediastinal shift to the left due to volume loss. Underlying pneumonia could be present. D/ / Mak Paez MD / Mak Paez MD Interpreting Provider: Mak Paez MD Consult Discharge Plan - Plan Referrals: Lakesiha Marsh, EMISSIONS ENGINEER [Primary Care Provider] - 07/03/16 1:00 pm <Byron Painting - Last Filed: 06/28/16 16:05> - Constitutional Vitals: Temp Pulse Resp BP Pulse Ox 98.2 F 95 22 154/67 91 L 06/28/16 14:52 06/28/16 14:52 06/28/16 15:44 06/28/16 14:52 06/28/16 15:44 Internal Medicine: Result - Labs CBC & Chem 7: 06/28/16 03:33 06/28/16 03:33 Labs: Short CBC 06/28/16 Range/Units 03:33 WBC 8.7 (4.3-11.1) K/mcL Hgb 9.7 L (11.5-15.4) g/dL Hct 28.9 L (35.3-44.9) % Plt Count 283 (140-400) K/mcL Neutrophils # 7.7 (1.6-8.9) K/mcL BMP 06/28/16 03:33 Sodium 138 Potassium 4.6 H Chloride 105 Carbon Dioxide 24 BUN 31 H Creatinine 1.08 Glucose 157 H Calcium 9.0 - ABG Interpretation ABG results: ABG ABG pH 7.38 pH Units (7.32-7.45) 06/22/16 21:40 ABG pCO2 46 mmHg (35-45) H 06/22/16 21:40 ABG pO2 67 mmHg (85-104) L 06/22/16 21:40 ABG O2 Saturation 93 % (95-98) L 06/22/16 21:40 PT/INR, D-dimer PT 10.7 Seconds (9.4-12.1) 06/22/16 05:47 - Attending Attestation I examined this patient and my medical decision-making was reviewed with the ERGONOMICS TECHNICIAN/PA/Advanced Practice Nurse/Resident Physician. I agree with the documented findings, disposition and treatment plan as described except to the extent set forth below. COPD with atelectasis in chronic active smoker and history of cancer. Refuses to participate in PT, D/W patient and her , patient stats will try to participate in PT tomorrow. Might benefit from placement to ECF. Continue with treatment for COPD.
[2016-06-28] MEDS: Mirtazapine 15 MG TABLET PO SCH (21:29)
[2016-06-28] MEDS: predniSONE 20 MG TABLET PO SCH (21:29)
[2016-06-29] MEDS: Acetylcysteine 10% 2 ML INHSOL IH SCH ×5 (03:27→20:35)
[2016-06-29] MEDS: Ipratropium/Albuterol Neb 3 ML IH SCH ×5 (03:27→20:35)
[2016-06-29 04:48] LABS: Basophils % 0.2 %; Hematocrit 29.2 % (35.3-44.9); Hemoglobin 9.8 g/dL (11.5-15.4); Immature Granulocytes % 4.7 % (0-4); Lymphocytes # 0.4 K/mcL (0.6-4.6); Lymphocytes % 4.3 %; Mean Corpuscular HGB Conc 33.6 g/dL (31.6-35.5); Mean Corpuscular Hemoglobin 30.2 pg (28.0-33.3); Mean Corpuscular Volume 89.8 fL (83.0-100.0); Monocytes # 0.7 K/mcL (0.0-1.3); Monocytes % 7.5 %; Neutrophils # 8.2 K/mcL (1.6-8.9); Platelet Count 268 K/mcL (140-400); Red Blood Count 3.25 M/mcL (3.82-4.97); Red Cell Distribution Width 15.6 % (11.5-14.5); Segmented Neutrophils % 83.3 %
[2016-06-29 05:01] LABS: BUN/Creatinine Ratio 30 (6-26); Blood Urea Nitrogen 32 mg/dL (7-20); Calcium 8.8 mg/dL (8.6-10.8); Carbon Dioxide 25 mEq/L (19-29); Chloride 105 mEq/L (98-109); Glucose 169 mg/dL (70-99); Osmolality,Calculated 295 (280-300); Potassium 4.7 mEq/L (3.5-4.5); Sodium 137 mEq/L (136-145); eGFR For African Americans > 60 (> 60); eGFR For Non-African Americans 50 (> 60)
[2016-06-29] MEDS: *HR* Heparin 5,000 UNIT/ML VIAL SQ SCH ×2 (06:11→18:03)
[2016-06-29] MEDS: Budesonide/Formoterol 160/4.5 MDI IH SCH ×2 (07:47→20:35)
[2016-06-29] MEDS: Megestrol Acetate 400 MG/10 ML UDC PO SCH (08:15)
[2016-06-29] MEDS: Aspirin 81 MG TAB.CHEW PO SCH (08:15)
[2016-06-29] MEDS: predniSONE 20 MG TABLET PO SCH ×2 (08:15→18:02)
[2016-06-29] MEDS: amLODIPine 5 MG TABLET PO SCH (08:15)
[2016-06-29] MEDS: Nystatin Cream 15 GM TUBE TP SCH ×2 (08:16→21:14)
--- NOTE | 2016-06-29 10:46 | Internal Med Progress Note ---
<Uche Mathias - Last Filed: 06/29/16 10:44> Date of Encounter: 06/29/16 Time of Encounter: 06:30 - Subjective Interval history: Ms. Valverde was seen and examined at bedside this morning. She was awake and alert, sitting up in no apparent distress. She says her shortness of breath is about the same as yesterday. She denies chest pain, abdominal pain or other new complaints. She continues to refuse BiPAP ([employer] not allowing addition of diagnoses to note): ATELECTASIS of the left lung Past medical history significant for lung cancer Pathology results from bronchoscopy were normal CHRONIC RESPIRATORY FAILURE Patient has refused to cooperate with recommendations to quit smoking, comply with BiPAP, and participate in rehabilitation O2 sats remain stable COPD on 3 L O2 at home Currently smoking 2 packs per day at home Continue supplemental oxygen, bronchodilators, systemic steroids She is tolerating transition from IV Solu-Medrol to by mouth prednisone Continues to smoke 2 packs per day despite history of lung cancer S/P chemotherapy and radiation Discussed importance of quitting again today Plan is for PT/OT to evaluate her today and transfer to [facility] for rehabilitation ANEMIA Hemoglobin has been stable, 9.8 this morning Transferrin is low, ferritin high suggesting anemia of chronic disease/ inflammation DVT PROPHYLAXIS Continue heparin - Constitutional Vitals: Temp Pulse Resp BP Pulse Ox 98.0 F 90 28 120/75 97 06/29/16 10:39 06/29/16 10:39 06/29/16 10:39 06/29/16 10:39 06/29/16 10:39 General appearance: Present: cooperative, A&O X 3, no acute distress, answers questions appropriately - Head Head exam: Present: atraumatic, normocephalic - Eye Eye exam: Present: PERRL, conjuntiva pink, sclera anicteric Pupils: Present: PERRL - Neck Neck exam general surgery: Present: supple, trachea midline. Absent: lymphadenopathy - Respiratory Respiratory exam: Present: decreased breath sounds. Absent: accessory muscle use, rales, rhonchi Additional comments: Mild diffuse wheezes - Cardiovascular Cardiovascular exam: Present: RRR, +S1, +S2. Absent: diastolic murmur, gallop, rubs, systolic murmur - GI/Abdominal GI/Abdominal exam: Present: normal bowel sounds, soft, no peritoneal signs. Absent: distended, tenderness - Extremities Exam Extremities exam: Present: warm, radial pulses palpable and symetrical. Absent : calf tenderness, cyanotic, pedal edema - Neurological Exam Neurological exam: Present: CN II-XII intact, oriented X3, no focal deficits. Absent: pronater drift, facial droop, speech deficit - Skin Skin exam: Present: dry, intact Internal Medicine: Result - Labs CBC & Chem 7: 06/29/16 04:30 06/29/16 04:30 Labs: Short CBC 06/29/16 Range/Units 04:30 WBC 9.9 (4.3-11.1) K/mcL Hgb 9.8 L (11.5-15.4) g/dL Hct 29.2 L (35.3-44.9) % Plt Count 268 (140-400) K/mcL Neutrophils # 8.2 (1.6-8.9) K/mcL BMP 06/29/16 04:30 Sodium 137 Potassium 4.7 H Chloride 105 Carbon Dioxide 25 BUN 32 H Creatinine 1.08 Glucose 169 H Calcium 8.8 - ABG Interpretation ABG results: ABG ABG pH 7.38 pH Units (7.32-7.45) 06/22/16 21:40 ABG pCO2 46 mmHg (35-45) H 06/22/16 21:40 ABG pO2 67 mmHg (85-104) L 06/22/16 21:40 ABG O2 Saturation 93 % (95-98) L 06/22/16 21:40 PT/INR, D-dimer PT 10.7 Seconds (9.4-12.1) 06/22/16 05:47 Consult Discharge Plan - Plan Referrals: Lakeisha Marsh, MACHINE FEATHEREDGER AND REDUCER [Primary Care Provider] - 07/03/16 1:00 pm <Byron Painting - Last Filed: 06/29/16 17:24> - Constitutional Vitals: Temp Pulse Resp BP Pulse Ox 98.0 F 96 20 145/69 93 L 06/29/16 15:22 06/29/16 15:22 06/29/16 16:19 06/29/16 15:22 06/29/16 16:19 Internal Medicine: Result - Labs CBC & Chem 7: 06/29/16 04:30 06/29/16 04:30 Labs: Short CBC 06/29/16 Range/Units 04:30 WBC 9.9 (4.3-11.1) K/mcL Hgb 9.8 L (11.5-15.4) g/dL Hct 29.2 L (35.3-44.9) % Plt Count 268 (140-400) K/mcL Neutrophils # 8.2 (1.6-8.9) K/mcL BMP 06/29/16 04:30 Sodium 137 Potassium 4.7 H Chloride 105 Carbon Dioxide 25 BUN 32 H Creatinine 1.08 Glucose 169 H Calcium 8.8 - ABG Interpretation ABG results: ABG ABG pH 7.38 pH Units (7.32-7.45) 06/22/16 21:40 ABG pCO2 46 mmHg (35-45) H 06/22/16 21:40 ABG pO2 67 mmHg (85-104) L 06/22/16 21:40 ABG O2 Saturation 93 % (95-98) L 06/22/16 21:40 PT/INR, D-dimer PT 10.7 Seconds (9.4-12.1) 06/22/16 05:47 - Attending Attestation I examined this patient and my medical decision-making was reviewed with the CUPOLA WORKER/PA/Advanced Practice Nurse/Resident Physician. I agree with the documented findings, disposition and treatment plan as described except to the extent set forth below. Continue with management of her severe copd, possible d/ c tomorrow. home services as recommended by ELISEO flowers.
[2016-06-29] MEDS: *HR* LORazepam 1 MG TABLET PO PRN (12:44)
[2016-06-29] MEDS: Mirtazapine 15 MG TABLET PO SCH (20:45)
[2016-06-29] MEDS: Acetaminophen 325 MG TABLET PO PRN (20:45)
[2016-06-30] MEDS: *HR* LORazepam 1 MG TABLET PO PRN (03:23)
[2016-06-30] MEDS: Ipratropium/Albuterol Neb 3 ML IH SCH ×4 (03:31→11:28)
[2016-06-30] MEDS: Acetylcysteine 10% 2 ML INHSOL IH SCH ×4 (03:31→11:28)
[2016-06-30 04:25] LABS: Basophils % 0.1 %; Hematocrit 28.6 % (35.3-44.9); Hemoglobin 9.6 g/dL (11.5-15.4); Immature Granulocytes % 4.2 % (0-4); Lymphocytes # 0.4 K/mcL (0.6-4.6); Lymphocytes % 3.7 %; Mean Corpuscular HGB Conc 33.6 g/dL (31.6-35.5); Mean Corpuscular Hemoglobin 30.3 pg (28.0-33.3); Mean Corpuscular Volume 90.2 fL (83.0-100.0); Mean Platelet Volume 9.6 fL (9.4-12.4); Monocytes # 0.5 K/mcL (0.0-1.3); Monocytes % 4.5 %; Neutrophils # 8.9 K/mcL (1.6-8.9); Platelet Count 274 K/mcL (140-400); Red Blood Count 3.17 M/mcL (3.82-4.97); Red Cell Distribution Width 15.8 % (11.5-14.5); Segmented Neutrophils % 87.5 %
[2016-06-30 04:46] LABS: BUN/Creatinine Ratio 29 (6-26); Blood Urea Nitrogen 32 mg/dL (7-20); Calcium 8.8 mg/dL (8.6-10.8); Carbon Dioxide 25 mEq/L (19-29); Chloride 104 mEq/L (98-109); Glucose 181 mg/dL (70-99); Osmolality,Calculated 293 (280-300); Potassium 4.6 mEq/L (3.5-4.5); Sodium 136 mEq/L (136-145); eGFR For African Americans > 60 (> 60); eGFR For Non-African Americans 50 (> 60)
[2016-06-30] MEDS: *HR* Heparin 5,000 UNIT/ML VIAL SQ SCH (06:15)
[2016-06-30] MEDS: Budesonide/Formoterol 160/4.5 MDI IH SCH (07:46)
[2016-06-30] MEDS: predniSONE 20 MG TABLET PO SCH (08:59)
[2016-06-30] MEDS: Aspirin 81 MG TAB.CHEW PO SCH (09:00)
[2016-06-30] MEDS: Megestrol Acetate 400 MG/10 ML UDC PO SCH (09:00)
[2016-06-30] MEDS: amLODIPine 5 MG TABLET PO SCH (09:00)
[2016-06-30] MEDS: Nystatin Cream 15 GM TUBE TP SCH (09:00)
--- NOTE | 2016-06-30 11:23 | Discharge Summary ---
<StewUche Mak - Last Filed: 06/30/16 12:02> Date of Encounter: 06/30/16 Time of Encounter: 09:00 - Discharge Diagnosis (1) Atelectasis of left lung Priority: Primary Status: Acute (2) Chronic respiratory failure Priority: Primary Status: Chronic Qualifiers: Respiratory failure complication: hypoxia Qualified Code(s): J96.11 - Chronic respiratory failure with hypoxia (3) Hypothyroidism (acquired) Priority: Secondary Status: Chronic (4) Chronic kidney disease Priority: Secondary Status: Chronic Qualifiers: Chronic kidney disease stage: stage 1 Qualified Code(s): N18.1 - Chronic kidney disease, stage 1 (5) Anemia Priority: Secondary Status: Chronic Qualifiers: Anemia type: iron deficiency Iron deficiency anemia type: unspecified iron deficiency Qualified Code(s): D50.9 - Iron deficiency anemia, unspecified (6) Tobacco use disorder Priority: Secondary Status: Chronic (7) COPD (chronic obstructive pulmonary disease) with chronic bronchitis Priority: Secondary Status: Chronic - Discharge Medications Prescriptions: Ipratropium/Albuterol Neb [Duoneb] 3 ml IH [id number] #30 inhsol Amlodipine [Norvasc] 5 mg PO DAILY #30 tablet PredniSONE 20 mg PO BIDWM #20 tablet Home Medications: Aspirin 81 mg PO DAILY 12/03/14 [History] Budesonide/Formoterol 160/4.5 [Symbicort] 2 puff IH BID 12/03/14 [History] Oxygen 3 l IH AD 02/28/15 [History] Cetirizine HCl [Zyrtec] 10 mg PO DAILY 05/29/15 [History] Ergocalciferol (VITAMIN D2) [Vitamin D2 (50,000 UNIT)] 50,000 unit PO QWEEK 11/15 [History] Ferrous Sulfate [Iron] 325 mg PO DAILY #90 tablet 03/31/16 [Rx] Atorvastatin [Lipitor] 10 mg PO HS 06/19/16 [History] LORazepam [Ativan] 1 mg PO BID 06/19/16 [History] Levothyroxine [Synthroid] 75 mcg PO DAILY 06/19/16 [History] Losartan [Cozaar] 25 mg PO DAILY 06/19/16 [History] Mirtazapine [Remeron] 15 mg PO HS 06/19/16 [History] Omeprazole [PriLOSEC] 40 mg PO DAILY 06/19/16 [History] Cholecalciferol (D-3) [Vitamin D] 50,000 unit PO QWEEK 06/20/16 [History] Amlodipine [Norvasc] 5 mg PO DAILY #30 tablet 06/30/16 [Rx] Ipratropium/Albuterol Neb [Duoneb] 3 ml IH [id number] #30 inhsol 06/30/16 [Rx] PredniSONE 20 mg PO BIDWM #20 tablet 06/30/16 [Rx] Allergies/Adverse Reactions: Allergies codeine Adverse Reaction (Mild, Verified 06/19/16 04:59) Nausea STERIODS Allergy (Mild, Uncoded 02/28/15 07:31) Rash/NAUSEA Date of admission: 06/19/16 15:34 Primary care physician: Lakeisha Marsh CNP Consults: 06/19/16 10:38 Consult to Hyperion Analyst [CONS] Routine Reason for SW Consult: discharge planning/resources 06/19/16 10:39 Consult to Occupational Therapy [CONS] Routine Comment: Evaluate, develop and implement POC Consult to Physical Therapy [CONS] Routine Comment: Evaluate, develop and implement POC 06/20/16 07:07 Consult to Pulmonology [CONS] Routine Consulting Provider: [facility] Reason for Consult: partial collapse of left lower lung with mucuous plugg Call Completed: Yes Discharging clinician: Uche Mathias Anticipated date of discharge: 06/30/16 - Patient Status Disposition: Home Health Service Condition: Fair Functional capacity at discharge: uses cane/walker - Discharge Instructions Follow Up With: Lakeisha Marsh CNP [Primary Care Provider] - 07/03/16 1:00 pm - Diet and Activity Activity: as per physical therapy, wear oxygen at all times Diet: advance to your usual diet Hospital course: Ms. Valverde is a 66 year old female with a history of COPD, head, neck, and lung cancer, HTN, anemia, CKD, and hypothyroidism. She presented to the ED 06/19/16 with a 2 day history of non productive cough, subjective fevers, rhinorrhea, diaphoresis, and increased use of her inhalers. called EMS for her due to diaphoresis. Home 02 at 3L at all times and she still smokes 1/2 PPD. During her hospitalization she was given duo nebs, Symbicort, high-dose Solu- Medrol with some initial difficulty tapering off IV steroids but eventual stabilization of O2 sat durations on oral prednisone. Patient was counseled multiple times during her hospitalization regarding smoking cessation. She refused to use her BiPAP despite multiple requests. We also recommended she be discharged to a rehabilitation facility which she also refused to do. Record review showed a history of chronic anemia and her hemoglobin was a little low during her hospitalization but stable given her baseline. At one point her chest x-ray showed an increase in the partial collapse of her left upper lobe which was concerning for malignancy. Pulmonology performed bronchoscopy with biopsy which was benign. She was discharged home on an extended prednisone taper - Time Spent with Patient Total time spent providing and/or coordinating discharge services: Greater than 30 minutes - Constitutional Vitals: Temp Pulse Resp BP Pulse Ox 98.3 F 85 18 128/74 94 L 06/30/16 07:21 06/30/16 07:21 06/30/16 07:47 06/30/16 07:21 06/30/16 09:00 General appearance: Present: cooperative, A&O X 3, no acute distress, answers questions appropriately - Head Head exam: Present: atraumatic, normocephalic - Eye Eye exam: Present: PERRL, conjuntiva pink, sclera anicteric Pupils: Present: PERRL - Neck Neck exam general surgery: Present: supple, trachea midline. Absent: lymphadenopathy - Respiratory Respiratory exam: Present: CTAB. Absent: accessory muscle use, rales, rhonchi, wheezes - Cardiovascular Cardiovascular exam: Present: RRR, +S1, +S2. Absent: diastolic murmur, gallop, rubs, systolic murmur - GI/Abdominal GI/Abdominal exam: Present: normal bowel sounds, soft, no peritoneal signs. Absent: distended, tenderness - Extremities Exam Extremities exam: Present: warm, radial pulses palpable and symetrical. Absent : calf tenderness, cyanotic, pedal edema - Neurological Exam Neurological exam: Present: CN II-XII intact, oriented X3, no focal deficits. Absent: pronater drift, facial droop, speech deficit - Skin Skin exam: Present: dry, intact <Byron Painting - Last Filed: 06/30/16 14:42> Date of admission: 06/19/16 15:34 Primary care physician: Lakeisha Marsh CNP Consults: 06/19/16 10:38 Consult to Hyperion Analyst [CONS] Routine Reason for SW Consult: discharge planning/resources 06/19/16 10:39 Consult to Occupational Therapy [CONS] Routine Comment: Evaluate, develop and implement POC Consult to Physical Therapy [CONS] Routine Comment: Evaluate, develop and implement POC 06/20/16 07:07 Consult to Pulmonology [CONS] Routine Consulting Provider: [facility] [place] Reason for Consult: partial collapse of left lower lung with mucuous plugg Call Completed: Yes Hospital course: Ms. Valverde is a 66 year old female - Time Spent with Patient Total time spent providing and/or coordinating discharge services: - Constitutional Vitals: Temp Pulse Resp BP Pulse Ox 97.8 F 107 24 151/78 95 06/30/16 11:54 06/30/16 11:54 06/30/16 11:54 06/30/16 11:54 06/30/16 11:54 - Attending Attestation I examined this patient and my medical decision-making was reviewed with the PLAN COORDINATOR/PA/Advanced Practice Nurse/Resident Physician. I agree with the documented findings, disposition and treatment plan as described except to the extent set forth below. Ms. Valverde was seen and examined in rounds. I agree with the physical examination findings, assessment and plan as documented by the resident. Briefly, patient with severe COPD, chronic active smoker and poor adherence to medical therapy was admitted due to COPD exacerbation. She has improved however she is a patient with multiple comorbidities and has high risk of readmission. Patient will be discharged home today, she will continue with long-term oxygen therapy and home health services. The plan of care was discussed in detail with the patient and her , they both expressed understanding.
[2016-06-30 11:56] VITALS: BP 151/78
--- NOTE | 2016-06-30 13:18 | Physician Discharge Referral ---
<StewUcheumesh Corado - Last Filed: 06/30/16 13:16> Home Health/Hosp Referral Info Transfer to: Home Health Provider in Charge Post Discharge: PCP - Diagnosis (1) Atelectasis of left lung Priority: Primary Status: Acute (2) Chronic respiratory failure Priority: Primary Status: Chronic (3) Hypothyroidism (acquired) Priority: Secondary Status: Chronic (4) Chronic kidney disease Priority: Secondary Status: Chronic (5) Anemia Priority: Secondary Status: Chronic (6) Tobacco use disorder Priority: Secondary Status: Chronic (7) COPD (chronic obstructive pulmonary disease) with chronic bronchitis Priority: Secondary Status: Chronic - Respiratory Orders Oxygen / L per min (3) Smoking Cessation: Smoking cessation has been advised. For more information, call the [place] Tobacco Quit Line at 5-331-ZCNI-NOW. - Diet/Nutrition Diet/Nutrition Orders: Mechanical Soft Diet/Nutrition: List: Advanced soft diet with chopped meat - Activity Activity Orders: Up ad kennedi - Services Needed Following services are medically necessary services: Physical Therapy, Occupational Therapy - Transfer Medications Prescriptions: Ipratropium/Albuterol Neb [Duoneb] 3 ml IH [id number] #30 inhsol Amlodipine [Norvasc] 5 mg PO DAILY #30 tablet PredniSONE 20 mg PO BIDWM #20 tablet Home Medications: Aspirin 81 mg PO DAILY 12/03/14 [History] Budesonide/Formoterol 160/4.5 [Symbicort] 2 puff IH BID 12/03/14 [History] Oxygen 3 l IH AD 02/28/15 [History] Cetirizine HCl [Zyrtec] 10 mg PO DAILY 05/29/15 [History] Ergocalciferol (VITAMIN D2) [Vitamin D2 (50,000 UNIT)] 50,000 unit PO QWEEK 11/15 [History] Ferrous Sulfate [Iron] 325 mg PO DAILY #90 tablet 03/31/16 [Rx] Atorvastatin [Lipitor] 10 mg PO HS 06/19/16 [History] LORazepam [Ativan] 1 mg PO BID 06/19/16 [History] Levothyroxine [Synthroid] 75 mcg PO DAILY 06/19/16 [History] Losartan [Cozaar] 25 mg PO DAILY 06/19/16 [History] Mirtazapine [Remeron] 15 mg PO HS 06/19/16 [History] Omeprazole [PriLOSEC] 40 mg PO DAILY 06/19/16 [History] Cholecalciferol (D-3) [Vitamin D] 50,000 unit PO QWEEK 06/20/16 [History] Amlodipine [Norvasc] 5 mg PO DAILY #30 tablet 06/30/16 [Rx] Ipratropium/Albuterol Neb [Duoneb] 3 ml IH [id number] #30 inhsol 06/30/16 [Rx] PredniSONE 20 mg PO BIDWM #20 tablet 06/30/16 [Rx] Allergies/Adverse Reactions: Allergies codeine Adverse Reaction (Mild, Verified 06/19/16 04:59) Nausea STERIODS Allergy (Mild, Uncoded 02/28/15 07:31) Rash/NAUSEA Certification: Further, I certify that my clinical findings support that this patient is homebound (i.e. absences from home require considerable and taxing effort and are for medical reasons or congregational services or infrequently or short duration when for other reasons) because: Homebound Reason: Severity of cardiac or pulmonary status limits activity tolerance Attestation: My signature below is to certify that this patient is under my care and that I, or nurse practitioner, or a physician's assistant housekeeping manager working with me, has a face-to -face encounter with this patient. <Byron Painting - Last Filed: 06/30/16 14:43> - Respiratory Orders Smoking Cessation: Smoking cessation has been advised. For more information, call the [place] Tobacco Quit Line at 0-313-LEHL-NOW. Certification: Further, I certify that my clinical findings support that this patient is homebound (i.e. absences from home require considerable and taxing effort and are for medical reasons or congregational services or infrequently or short duration when for other reasons) because: Attestation: My signature below is to certify that this patient is under my care and that I, or nurse practitioner, or a physician's assistant housekeeping manager working with me, has a face-to -face encounter with this patient.
== END 2016-06-30 14:00 | disposition home health service (06) | DRG 140 ==
LOC: 3BNU → SUATTDRO 15:34
PROVIDERS: ADMIT Internal Medicine; ATTEND Internal Medicine

== ENCOUNTER 2017-11-08 21:32 | Inpatient (IN) ==
[2017-11-09] MEDS ORDERED: 0.9 % Sodium Chloride 1,000 ML IVC SCH (02:15)
[2017-11-09 03:39] LABS: Basophils # 0.1 K/mcL (0.0-0.2); Basophils % 0.4 %; Eosinophils # 0.3 K/mcL (0.0-0.6); Eosinophils % 2.3 %; Hematocrit 28.4 % (35.3-44.9); Hemoglobin 9.7 g/dL (11.5-15.4); Immature Granulocytes % 0.9 % (0-4); Lymphocytes # 0.9 K/mcL (0.6-4.6); Mean Corpuscular HGB Conc 34.2 g/dL (31.6-35.5); Mean Corpuscular Hemoglobin 29.1 pg (28.0-33.3); Mean Corpuscular Volume 85.3 fL (83.0-100.0); Mean Platelet Volume 7.9 fL (9.4-12.4); Monocytes # 0.9 K/mcL (0.0-1.3); Neutrophils # 12.2 K/mcL (1.6-8.9); Platelet Count 297 K/mcL (140-400); Red Blood Count 3.33 M/mcL (3.82-4.97); Red Cell Distribution Width 13.8 % (11.5-14.5); Segmented Neutrophils % 84.4 %
[2017-11-09] MEDS ORDERED: Naloxone 0.4 MG/ML INJ IVP PRN (03:47)
[2017-11-09] MEDS ORDERED: Ipratropium/Albuterol Neb 3 ML IH PRN (03:53)
[2017-11-09 04:03] LABS: BUN/Creatinine Ratio 20 (6-26); Blood Urea Nitrogen 20 mg/dL (8-23); Calcium 9.1 mg/dL (8.6-10.3); Carbon Dioxide 38 mEq/L (23-29); Chloride 80 mEq/L (98-107); Glucose 141 mg/dL (70-105); Osmolality,Calculated 265 (280-300); Potassium 2.9 mEq/L (3.5-5.1); Sodium 125 mEq/L (136-145); eGFR For African Americans > 60 (> 60); eGFR For Non-African Americans 54 (> 60)
[2017-11-09] MEDS ORDERED: D5% in Water 1,000 ML IVC PRN (04:11)
[2017-11-09] MEDS ORDERED: Dextrose Gel 15 GM/37.5 ML TUBE PO PRN ×2 (04:11)
[2017-11-09] MEDS ORDERED: *HR* Dextrose 50 % in Water (Syg) 50 ML SYRINGE IVP PRN (04:11)
--- NOTE | 2017-11-09 04:28 | Internal Med History&Physical ---
Date of Encounter: 11/09/17 Time of Encounter: 03:00 Internal Medicine - H&P: HPI Chief complaint: Shortness of breath and low sodium Admitted From: Home Plans for Post Hospital Care: Home History of present illness: Ms. Valverde is a 67 year old female present to [place] [facility] for shortness of breath and a low sodium. Past medical history is significant for head and neck cancer, COPD, diabetes, hypertension, CKD Patient was called by oncology office for low sodium. Patient also has recent increased shortness of breath. With wheezing. Patient has COPD on home oxygen. Patient denies chest pain, nausea, diaphoresis, or diarrhea. Upon arrival, she started to have epigastric pain. Patient was found sodium 118 in [place] [facility]. Nephrology was counseled, recommend fluid restriction. Patient was also given Lasix in [place] [facility]. Patient was transferred to our hospital for further management. Past Med Surg Social Fam HX - Past Medical History Medical history: asthma, cancer, COPD, diabetes, GERD, hyperlipidemia, hypertension, malignancy, migraine, renal disease, thyroid disease, other Additional medical history: Iron deficiency anemia, Secondary hyperparathyroidism, Vitamin D deficiency, Diabetic polyneuropathy, Hypothyroidism, Depression, Anxiety, Nasal septum perforation, Cancer of head and neck (Chemo and radiation), Chronic gout. Psychiatric history: anxiety, depression - Past Surgical History Surgical History: appendectomy, cholecystectomy, RAMONA/BSO, other Additional surgical history: Lymph nodes to lt neck removed - Social History Smoking Status: Current every day smoker Smokeless Tobacco Status: No Alcohol use: none Drug use: none - Family History Mother Living Status: Hx Family Cardiac Disorders: Yes Hx Family Endocrine Disorder: Yes (diabetes) Internal Medicine - H&P: Meds Aspirin 81 mg PO DAILY 12/03/14 [History] Oxygen 3 l IH AD 02/28/15 [History] Ergocalciferol (VITAMIN D2) [Vitamin D2 (50,000 UNIT)] 50,000 unit PO QWEEK 11/15 [History] Ferrous Sulfate [Iron] 325 mg PO DAILY #90 tablet 03/31/16 [Rx] Losartan [Cozaar] 25 mg PO DAILY 06/19/16 [History] Mirtazapine [Remeron] 15 mg PO HS 06/19/16 [History] LORazepam [Ativan] 1 mg PO BID #60 tablet 07/24/16 [Rx] Amitriptyline [Elavil] 10 mg PO HS 10/15/16 [History] Citalopram Hydrobromide [Citalopram HBr] 20 mg PO DAILY 10/15/16 [History] Furosemide [Lasix] 40 mg PO DAILY 10/15/16 [History] Roflumilast [Daliresp] 500 mcg PO DAILY 10/15/16 [History] predniSONE [PredniSONE] 5 mg PO DAILY 10/15/16 [History] Folic Acid 0.8 mg PO DAILY 09/21/17 [History] Levothyroxine [Synthroid] [place] [address]/21/17 [History] Loratadine [Allergy Relief] 10 mg PO DAILY 09/21/17 [History] Omeprazole [PriLOSEC] 20 mg PO DAILY 09/21/17 [History] Simvastatin [Zocor] 20 mg PO HS 09/21/17 [History] Trazodone HCl 150 mg PO HS 09/21/17 [History] metOLazone [Zaroxolyn] 5 mg PO DAILY 11/08/17 [History] 3 Allergy/AdvReac Type Severity Reaction Status Date / Time codeine AdvReac Mild Nausea Verified 11/08/17 18:57 STERIODS Allergy Mild Rash/NAUSEA Uncoded 11/08/17 18:57 All Systems PM: A 10-system review of systems was performed and is negative for pertinent findings except as documented above in the HPI. - Constitutional Vitals: Temp Pulse Resp BP Pulse Ox 97.8 F 94 22 161/74 98 11/09/17 01:25 11/09/17 01:25 11/09/17 01:25 11/09/17 01:25 11/09/17 03:29 General appearance: Present: A&O X 3, no acute distress, answers questions appropriately - Head Head exam: Present: atraumatic, normocephalic - Eye Eye exam: Present: PERRL, conjuntiva pink, sclera anicteric Pupils: Present: PERRL - Neck Neck exam general surgery: Present: supple, trachea midline. Absent: lymphadenopathy - Respiratory Respiratory exam: Present: CTAB, wheezes (Diffused wheezes bilaterally). Absent : accessory muscle use, rales, rhonchi - Cardiovascular Cardiovascular exam: Present: RRR, +S1, +S2. Absent: diastolic murmur, gallop, rubs, systolic murmur - GI/Abdominal GI/Abdominal exam: Present: normal bowel sounds, soft, no peritoneal signs. Absent: distended, tenderness - Extremities Exam Extremities exam: Present: pedal edema (Moderate to severe pitting pedal edema bilaterally), warm, radial pulses palpable and symmetrical. Absent: calf tenderness, cyanotic - Neurological Exam Neurological exam: Present: CN II-XII intact, oriented X3, no focal deficits. Absent: pronater drift, facial droop, speech deficit - Skin Skin exam: Present: dry, intact Internal Med - H&P Results - Labs CBC & Chem 7: 11/09/17 03:28 11/09/17 03:28 Labs: Short CBC 11/09/17 Range/Units 03:28 WBC 14.4 H (4.3-11.1) K/mcL Hgb 9.7 L (11.5-15.4) g/dL Hct 28.4 L (35.3-44.9) % Plt Count 297 (140-400) K/mcL Neutrophils # 12.2 H (1.6-8.9) K/mcL BMP 11/09/17 03:28 Sodium 125 L Potassium 2.9 L Chloride 80 L Carbon Dioxide 38 H BUN 20 Creatinine 1.02 Glucose 141 H Calcium 9.1 - Assessment and plan (1) COPD exacerbation Current Visit: Yes Status: Acute Assessment and plan: Patient has increased wheezing. His of COPD. Has shortness of breath. Chest x -ray shows possible infiltrate. Consider COPD exacerbation or early pneumonia. - Place patient on antibiotic, steroid, and bronchodilator. - Continue oxygen supportive treatment (2) Diabetes mellitus Current Visit: Yes Status: Acute Assessment and plan: Patient is not taking insulin at home. Place patient on sliding scale insulin coverage Qualifiers: Diabetes mellitus type: type 2 Diabetes mellitus complication status: with kidney complications Diabetes mellitus complication detail: with chronic kidney disease Chronic kidney disease stage: stage 3 (moderate) Qualified Code(s): E11.22 - Type 2 diabetes mellitus with diabetic chronic kidney disease ; N18.3 - Chronic kidney disease, stage 3 (moderate); Z79.4 - skilled nursing (current ) use of insulin (3) Hypertension Current Visit: Yes Status: Acute Assessment and plan: Continue home medications after verification. Place patient on hydralazine IV when necessary Qualifiers: Hypertension type: essential hypertension Qualified Code(s): I10 - Essential (primary) hypertension (4) DVT prophylaxis Current Visit: Yes Status: Acute Assessment and plan: Heparin subcutaneously (5) Hyponatremia Current Visit: No Status: Acute Assessment and plan: Sodium 118. Patient has no seizure, nausea, or vomiting. Place patient on fluid restriction. Closely monitor sodium level. Goal of correction is not over 8-10 mEq in the first 24 hours. (6) Head and neck cancer Current Visit: No Status: Chronic (7) Lung cancer Current Visit: No Status: Chronic Assessment and plan: Continue outpatient follow-up with oncology Qualifiers: Laterality: left Lung location: upper lobe of lung Qualified Code(s): C34.12 - Malignant neoplasm of upper lobe, left bronchus or lung (8) Hypothyroidism (acquired) Current Visit: No Status: Chronic Assessment and plan: Continue home medications (9) Chronic kidney disease Current Visit: No Status: Chronic Assessment and plan: Closely monitor renal function Qualifiers: Chronic kidney disease stage: stage 3 (moderate) Qualified Code(s): N18.3 - Chronic kidney disease, stage 3 (moderate) (10) Tobacco abuse Current Visit: No Status: Chronic Assessment and plan: Smoking cessation education. Patient takes one cigarette per day. She does not need nicotine patch (11) Leg swelling Current Visit: Yes Status: Acute Assessment and plan: Etiology is undetermined. Bilateral pitting edema. BNP 85 today. Will check echocardiogram. Keep patient on low-dose Lasix IV. - Time Spent With Patient Total time spent is greater than 50% in coordination of care (as documented) at patient's floor/unit and/or counseling patient: 40 minutes Greater than 35 minutes
[2017-11-09] MEDS: Ipratropium/Albuterol Neb 3 ML IH SCH ×4 (04:51→22:08)
[2017-11-09 05:07] LABS: Magnesium 1.6 mg/dL (1.6-2.6)
[2017-11-09] MEDS ORDERED: methylPREDNISolone 125 MG/2 ML VIAL IVP SCH (06:00)
[2017-11-09] MEDS ORDERED: methylPREDNISolone 125 MG/2 ML VIAL IM SCH (06:00)
--- NOTE | 2017-11-09 06:19 | Event Note ---
Date of Encounter: 11/09/17 Time of Encounter: 06:15 Pt has listed STEROID allergy. She can not tell which steroid allergy. Will temperarily hold solumendral. Pt has COPDE, really need steroid, need day time pharmacist figure out which steroid pt can use.
[2017-11-09] MEDS: *HR* Heparin 5,000 UNIT/ML VIAL SQ SCH ×2 (06:54→17:52)
[2017-11-09] MEDS: cefTRIAXone 1,000 MG in Water for inj. (sterile) 20 ML 10 ML IVP SCH (08:00)
[2017-11-09] MEDS: Azithromycin 250 MG TABLET PO SCH (08:01)
[2017-11-09 08:13] LABS: BUN/Creatinine Ratio 20 (6-26); Blood Urea Nitrogen 19 mg/dL (8-23); Calcium 9.2 mg/dL (8.6-10.3); Carbon Dioxide 38 mEq/L (23-29); Glucose 164 mg/dL (70-105); eGFR For African Americans > 60 (> 60); eGFR For Non-African Americans 58 (> 60)
[2017-11-09 08:40] LABS: Chloride 80 mEq/L (98-107); Osmolality,Calculated 268 (280-300); Sodium 126 mEq/L (136-145)
[2017-11-09] MEDS ORDERED: Furosemide 20 MG/2 ML VIAL IVP SCH (09:00)
[2017-11-09] MEDS: Insulin LISPRO 300 UNITS/3 ML VIAL SQ SCH ×4 (10:47→21:43)
[2017-11-09] MEDS: Acetaminophen 325 MG TABLET PO PRN ×2 (11:50→19:57)
--- NOTE | 2017-11-09 12:26 | Nephrology Consult Note ---
Date of Encounter: 11/09/17 Time of Encounter: 10:00 Assessment and Plan (1) Hyponatremia Current Visit: No Status: Acute Na 118 @ 1800 11/08 in [place]; no seizure, nausea, headache, agitation/ confusion 126 @ 0700 11/09 (trajectory slightly fast) No GI/extrarenal losses per patient history; no protein on UA P: Correction Goal 8-10meq in 24h; 18meq in 48h; current trajectory slightly too rapid; pt remains asymptomatic Will give 500cc at 100cc/h of hypotonic D5W to slow down correction of Sodium today Urine Sodium and Serum Osmolality ordered to better ascertain hyponatremia type (patient Extracellular fluid status clinically difficult to tell; trace pitting edema versus adipose) (2) COPD exacerbation Current Visit: Yes Status: Acute CXR shows poss infiltrate; on RT, duonebs, O2 titration, and Rocephin (3) History of head and neck cancer Current Visit: Yes Status: Acute Hx squamous cell carcinoma; remission; surveillance; last encounter with Dr. Bravo 11/08/17 Doubt this is a contributing factor as paraneoplastic syndrome from an active small cell lung cancer is typical cause; SCCs do not typically cause hyponatremia Hyponatremia workup as above (4) Hx of cancer of lung Current Visit: Yes Status: Acute Per chart review, also in surveillance, pathology is also SCC (5) Diabetes mellitus Current Visit: Yes Status: Acute chronic, on ssi; POC in mid 100s Qualifiers: Diabetes mellitus type: type 2 Diabetes mellitus care home insulin use: unspecified care home insulin use status Diabetes mellitus complication status : with kidney complications Diabetes mellitus complication detail: with chronic kidney disease Chronic kidney disease stage: stage 3 (moderate) Qualified Code(s): E11.22 - Type 2 diabetes mellitus with diabetic chronic kidney disease; N18.3 - Chronic kidney disease, stage 3 (moderate) (6) Hypertension Current Visit: Yes Status: Acute home meds; on prn hydralazine per primary team Qualifiers: Hypertension type: essential hypertension Qualified Code(s): I10 - Essential (primary) hypertension History of Present Illness - Reason for Consult Consult date: 11/09/17 hyponatremia Requesting physician: Terrell Mckeon - Chief Complaint hyponatremia; shortness of breath - History of Present Illness 67F pmhx significant for head/neck/lung cancer in remission, COPD, DM2, HTN, CKD stage 3, admitted for COPD exacerbation with nephro consult for incidental finding of hyponatremia 118; asymptomatic/acute. Patient received 1L NS overnight. Patient's sodium this AM 127. She denies nausea/headache/dysarthria/ difficulty concentrating, she is baseline limited verbally due to hx of irradiation to head/neck for SCC. Past Med Surg Social Fam HX - Past Medical History Medical history: asthma, cancer, COPD, diabetes, GERD, hyperlipidemia, hypertension, malignancy, migraine, renal disease, thyroid disease, other Additional medical history: Iron deficiency anemia, Secondary hyperparathyroidism, Vitamin D deficiency, Diabetic polyneuropathy, Hypothyroidism, Depression, Anxiety, Nasal septum perforation, Cancer of head and neck (Chemo and radiation), Chronic gout. Psychiatric history: anxiety, depression - Past Surgical History Surgical History: appendectomy, cholecystectomy, RAMONA/BSO, other Additional surgical history: Lymph nodes to lt neck removed - Social History Smoking Status: Current every day smoker Smokeless Tobacco Status: No Alcohol use: none Drug use: none - Family History Mother Living Status: Hx Family Cardiac Disorders: Yes Hx Family Endocrine Disorder: Yes (diabetes) Medications and Allergies Aspirin 81 mg PO DAILY 12/03/14 [History] Ferrous Sulfate [Iron] 325 mg PO DAILY #90 tablet 03/31/16 [Rx] Losartan [Cozaar] 25 mg PO DAILY 06/19/16 [History] Mirtazapine [Remeron] 15 mg PO HS 06/19/16 [History] LORazepam [Ativan] 1 mg PO BID #60 tablet 07/24/16 [Rx] Amitriptyline [Elavil] 10 mg PO HS 10/15/16 [History] Furosemide [Lasix] 40 mg PO DAILY 10/15/16 [History] Roflumilast [Daliresp] 500 mcg PO DAILY 10/15/16 [History] predniSONE [PredniSONE] 5 mg PO DAILY 10/15/16 [History] Levothyroxine [Synthroid] 75 mcg PO 0609/21/17 [History] Loratadine [Allergy Relief] 10 mg PO DAILY 09/21/17 [History] Omeprazole [PriLOSEC] 20 mg PO DAILY 09/21/17 [History] Trazodone HCl 150 mg PO HS 09/21/17 [History] metOLazone [Zaroxolyn] 5 mg PO [facility] 11/08/17 [History] Albuterol Sulfate [Albuterol Inhaler] 1 puff IH Q4H PRN 11/09/17 [History] Atorvastatin [Lipitor] 10 mg PO HS 11/09/17 [History] Budesonide/Formoterol 160/4.5 [Symbicort 160/4.5] 2 puff IH BIDR 11/09/17 [ History] Citalopram [CeleXA] 20 mg PO DAILY 11/09/17 [History] Tiotropium [Spiriva] 18 mcg IH DAILY 11/09/17 [History] 3 Allergy/AdvReac Type Severity Reaction Status Date / Time codeine AdvReac Mild Nausea Verified 11/08/17 18:57 STERIODS AdvReac Mild Rash/NAUSEA Uncoded 11/09/17 09:39 Review of Systems All Systems: reviewed and no additional remarkable complaints except as stated Exam - Vital Signs Vital signs: Initial Vital Signs Temp Pulse Resp BP Pulse Ox 97.8 F 94 22 161/74 96 11/09/17 01:25 11/09/17 01:25 11/09/17 01:25 11/09/17 01:25 11/09/17 01:25 Vital Signs - Last 8 Hours Temp Pulse Resp BP Pulse Ox 11/09/17 11:09 98.4 F 93 18 133/67 99 11/09/17 10:40 20 99 11/09/17 07:12 98.1 F 101 18 151/65 98 11/09/17 04:51 16 97 11/09/17 04:47 97.5 F L 97 16 162/75 98 Intake and Output 11/08/17 11/09/17 11/09/17 23:59 07:59 15:59 Intake Total 60 / 60 Output Total 600 / 600 600 / 600 Balance -600 / -600 -540 / -540 Intake: Oral 60 / 60 Output: Catheter 600 / 600 600 / 600 Urethral (Chen) 600 / 600 Other: Meal Breakfast Percent of Meal Consumed 10% Stool Size Large Stool Consistency soft Stool Color Brown Weight 95.8 kg Blood Glucose* 173 172 Patient Weight 11/09/17 23:59 Weight 95.8 kg - General Appearance General appearance: well-developed, well-nourished, appears started age Neck: no JVD, supple Additional Comments: diminished breath sounds bilaterally, scattered wheeze, no crackles Cardiology: no murmurs, no rub, no gallops, no edema, regular rate, regular rhythm, normal S1, normal S2 Integumentary: no rash, warm and dry Additional Comments: trace edema Neurologic: no focal deficit, alert and oriented x3 Musculoskeletal: no deformities, no cyanosis, no clubbing Psychiatric: mood/affect appropriate, cooperative Results - Lab Results 11/09/17 03:28 11/09/17 12:18 Most recent lab results Calcium 9.2 mg/dL (8.6-10.3) 11/09/17 07:38 Magnesium 1.6 mg/dL (1.6-2.6) 11/09/17 03:28 Consult Discharge Plan - Plan Referrals: Carolyne Park, RANCH MANAGER [Advanced Practice Nurse] - 11/16/17 10:30 am (Lakeisha Marsh is on Vacation so you will see Carolyne Park this time.)
[2017-11-09 12:50] LABS: BUN/Creatinine Ratio 19 (6-26); Blood Urea Nitrogen 20 mg/dL (8-23); Calcium 9.2 mg/dL (8.6-10.3); Carbon Dioxide 40 mEq/L (23-29); Chloride 82 mEq/L (98-107); Glucose 145 mg/dL (70-105); Osmolality,Calculated 269 (280-300); Potassium 4.5 mEq/L (3.5-5.1); Sodium 127 mEq/L (136-145); eGFR For African Americans > 60 (> 60); eGFR For Non-African Americans 51 (> 60)
[2017-11-09] MEDS ORDERED: Albuterol 2.5 MG/3 ML NEBULIZER IH PRN (13:30)
[2017-11-09] MEDS ORDERED: metOLazone 5 MG TABLET PO SCH (13:45)
[2017-11-09] MEDS ORDERED: *HR* LORazepam 1 MG TABLET PO SCH (13:45)
[2017-11-09] MEDS ORDERED: (Roflumilast [Daliresp] 500 MCG) PO SCH (13:45)
--- NOTE | 2017-11-09 14:02 | Event Note ---
Date of Encounter: 11/09/17 Time of Encounter: 13:58 S: Patient had no acute events after admission. She states that she still has cough, but no SOB. She denies fever, chills, chest pain, nausea, vomiting, or abdominal pain. She has no other complaints at this time. O: Gen - Awake, alert, oriented, no acute distress HEENT - NCAT, PERRLA, EOMI, hearing grossly intact, oropharynx benign CV - RRR, normal S1 and S2, no M/R/G, no BLE edema Resp - Coarse breath sounds bilaterally with expiratory wheezing, no rales/ rhonchi, mildly labored WOB GI - Soft, NT/ND, no masses, normal bowel sounds, no HSP Skin - Warm, dry, no rashes/lesions/ulcers Psych - Normal mood and affect, no depression or anxiety A/P: 1) Hyponatremia - Nephrology consulted; appreciate input. Fluid restrict to 1.8L/day. Recheck Na Q4H. Recheck BMP in AM. Advised nursing staff not to let correct more than 8-10 mEq in 24 hours. 2) Acute Exacerbation of COPD - Started solumedrol 40 mg Q8H. Continue duonebs scheduled. Added guaifenesin, mucomyst, incentive spirometer, up to chair TID, turn/cough/deep breathe, and chest PT. RT consulted. Continue supplemental O2 ; wean to home 3L NC as tolerated.
[2017-11-09] MEDS ORDERED: D5% in Water 500 ML IVC ONE (14:21)
[2017-11-09] MEDS: Aspirin 81 MG TAB.CHEW PO SCH (15:09)
[2017-11-09] MEDS: MethylPREDNISolone 40 MG/ML VIAL IVP SCH ×3 (15:09→23:45)
[2017-11-09] MEDS: Loratadine 10 MG TABLET PO SCH (15:09)
[2017-11-09] MEDS: Budesonide/Formoterol 160/4.5 MDI IH SCH ×2 (16:11→22:09)
[2017-11-09] MEDS: Acetylcysteine 10% 2 ML INHSOL IH SCH ×2 (16:12→22:09)
[2017-11-09] MEDS: Mirtazapine 15 MG TABLET PO SCH (19:56)
[2017-11-09] MEDS: *HR* LORazepam 1 MG TABLET PO SCH (19:57)
[2017-11-09] MEDS: traZODone 50 MG TABLET PO SCH (19:57)
[2017-11-09] MEDS: hydrALAZINE 10 MG TABLET PO PRN (23:51)
[2017-11-10 01:55] LABS: Basophils % 0.1 %; Hematocrit 28.1 % (35.3-44.9); Hemoglobin 9.2 g/dL (11.5-15.4); Immature Granulocytes % 0.7 % (0-4); Lymphocytes # 0.6 K/mcL (0.6-4.6); Lymphocytes % 5.4 %; Mean Corpuscular HGB Conc 32.7 g/dL (31.6-35.5); Mean Corpuscular Hemoglobin 28.2 pg (28.0-33.3); Mean Corpuscular Volume 86.2 fL (83.0-100.0); Mean Platelet Volume 8.4 fL (9.4-12.4); Monocytes # 0.1 K/mcL (0.0-1.3); Monocytes % 1.2 %; Neutrophils # 9.5 K/mcL (1.6-8.9); Platelet Count 300 K/mcL (140-400); Red Blood Count 3.26 M/mcL (3.82-4.97); Red Cell Distribution Width 13.8 % (11.5-14.5); Segmented Neutrophils % 92.6 %
[2017-11-10 02:14] LABS: BUN/Creatinine Ratio 21 (6-26); Blood Urea Nitrogen 21 mg/dL (8-23); Calcium 9.3 mg/dL (8.6-10.3); Carbon Dioxide 38 mEq/L (23-29); Chloride 82 mEq/L (98-107); Glucose 188 mg/dL (70-105); Osmolality,Calculated 272 (280-300); Potassium 3.9 mEq/L (3.5-5.1); Sodium 127 mEq/L (136-145); eGFR For African Americans > 60 (> 60); eGFR For Non-African Americans 54 (> 60)
[2017-11-10] MEDS: Acetaminophen 325 MG TABLET PO PRN ×2 (02:51→09:17)
[2017-11-10] MEDS: Acetylcysteine 10% 2 ML INHSOL IH SCH ×4 (03:53→21:52)
[2017-11-10] MEDS: Ipratropium/Albuterol Neb 3 ML IH SCH ×4 (03:53→21:52)
[2017-11-10] MEDS: *HR* Heparin 5,000 UNIT/ML VIAL SQ SCH ×2 (05:40→17:26)
[2017-11-10] MEDS: hydrALAZINE 10 MG TABLET PO PRN ×2 (05:40→12:28)
[2017-11-10] MEDS: Loratadine 10 MG TABLET PO SCH (09:16)
[2017-11-10] MEDS: *HR* LORazepam 1 MG TABLET PO SCH ×2 (09:16→20:21)
[2017-11-10] MEDS: Aspirin 81 MG TAB.CHEW PO SCH (09:16)
[2017-11-10] MEDS: Azithromycin 250 MG TABLET PO SCH (09:17)
[2017-11-10] MEDS: cefTRIAXone 1,000 MG in Water for inj. (sterile) 20 ML 10 ML IVP SCH (09:17)
[2017-11-10] MEDS: MethylPREDNISolone 40 MG/ML VIAL IVP SCH ×3 (09:17→23:49)
[2017-11-10] MEDS: Insulin LISPRO 300 UNITS/3 ML VIAL SQ SCH ×4 (09:20→21:26)
[2017-11-10] MEDS: Budesonide/Formoterol 160/4.5 MDI IH SCH ×2 (10:38→21:52)
[2017-11-10] MEDS ORDERED: Perflutren Lipid Microsphere 1.3 ML in 0.9 % Sodium Chloride 8.7 ML IVP ONE (11:35)
[2017-11-10] MEDS: 0.9 % Sodium Chloride w KCl 20 MEQ/1,000 ML MLS IVC SCH (12:29)
--- NOTE | 2017-11-10 14:01 | Nephrology Progress Note ---
Date of Encounter: 11/10/17 Time of Encounter: 10:00 - Assessment and Plan (1) Hyponatremia Current Visit: Yes Status: Acute Patient's sodium 127meq; has risen at appropriate trajectory; she is asymptomatic. While PO intake may suffice today, due to her limited PO intake per today's encounter, plan is to give patient gentle IV fluid hydration in to replete Na further today. Continuing to monitor Na (2) COPD exacerbation Current Visit: Yes Status: Acute Per primary team; plan for taper, continuing O2 titration, duonebs, rocephin/ azithromycin. (3) History of head and neck cancer Current Visit: Yes Status: Acute Speech therapy diet modifications due to minimal swallow dysfunction; patient had limited PO intake yesterday saying she didn't quite like the taste of her altered diet. (4) Hx of cancer of lung Current Visit: Yes Status: Acute Outpatient surveillance; last seen by Dr. Bravo (5) Diabetes mellitus Current Visit: Yes Status: Chronic on SSI per primary Qualifiers: Diabetes mellitus type: type 2 Diabetes mellitus long term care social worker insulin use: unspecified fdc insulin use status Diabetes mellitus complication status : with kidney complications Diabetes mellitus complication detail: with chronic kidney disease Chronic kidney disease stage: stage 3 (moderate) Qualified Code(s): E11.22 - Type 2 diabetes mellitus with diabetic chronic kidney disease; N18.3 - Chronic kidney disease, stage 3 (moderate) (6) Hypertension Current Visit: Yes Status: Chronic On ARB and PRN hydralazine per primary Qualifiers: Hypertension type: essential hypertension Qualified Code(s): I10 - Essential (primary) hypertension Subjective Interval history: Pt states she didn't eat or drink too much yesterday because she didn't like the taste of the soft diet. Otherwise no concerns at this time. No acute events overnight. Denies headache, nausea, concentration difficulties, or dysarthria. Objective - Vital Signs Vital signs: Vital Signs Temp Pulse Resp BP Pulse Ox 11/10/17 12:17 98.1 F 90 16 173/76 94 11/10/17 11:43 88 19 178/72 95 11/10/17 10:41 20 94 11/10/17 09:20 97.9 F 100 21 185/85 92 11/10/17 03:53 18 94 11/10/17 02:25 98.2 F 83 18 177/79 91 11/09/17 23:46 98.4 F 80 21 176/75 93 11/09/17 22:45 99 11/09/17 22:11 16 95 11/09/17 19:30 86 11/09/17 18:44 98.0 F 87 20 141/113 98 11/09/17 16:28 98.2 F 78 17 144/76 100 11/09/17 16:18 22 100 Intake and Output 11/09/17 11/10/17 11/10/17 23:59 07:59 15:59 Intake Total 0 / 0 248 / 248 Output Total 800 / 800 300 / 300 Balance -800 / -800 -52 / -52 Intake: IV Fluids Rocephin 1,000 MG In Water for inj. (sterile) 10 ML @ 600 mls/ hr IVP DAILY [facility] Rx#:[id number] Oral 0 / 0 238 / 238 Output: Catheter 800 / 800 300 / 300 Other: Meal Lunch Percent of Meal Consumed 5% 75% Stool Size Moderate Stool Consistency soft formed Stool Characteristics Normal for Patient Stool Color Brown Weight 93.2 kg Blood Glucose* 265 166 Patient Weight 11/10/17 23:59 Weight 93.2 kg - General Appearance General appearance: Present: well-developed, well-nourished, appears started age Neck: Present: no JVD, no thyromegaly, no carotid bruit, supple Additional Comments: s/p neck irradiation; skin atrophy/fibrosis along anterior neck line Respiratory: Present: no kyphosis, no scoliosis, clear Cardiology: Present: no murmurs, no rub, no gallops, no edema, regular rate, regular rhythm, normal S1, normal S2 Gastrointestinal: Present: normoactive bowel sounds, no tenderness Integumentary: Present: no rash, warm and dry Neurologic: Present: no focal deficit, alert and oriented x3 Musculoskeletal: Present: no deformities, no erythema, no cyanosis, no clubbing Psychiatric: Present: mood/affect appropriate, cooperative - Lab 11/10/17 01:28 11/10/17 14:15 Most recent lab results Calcium 9.3 mg/dL (8.6-10.3) 11/10/17 01:28 Magnesium 1.6 mg/dL (1.6-2.6) 11/09/17 03:28 Urine Sodium < 10.0 mEq/L 11/09/17 19:40 Consult Discharge Plan - Plan Referrals: Carolyne Park, CARPET JOURNEYMAN [Advanced Practice Nurse] - 11/16/17 10:30 am (Lakeisha Marsh is on Vacation so you will see Carolyne Park this time.)
--- NOTE | 2017-11-10 14:08 | Internal Med Progress Note ---
Date of Encounter: 11/10/17 Time of Encounter: 14:06 - Assessment and plan (1) Hyponatremia Current Visit: Yes Status: Acute Assessment and plan: Improved. Nephrology consulted; appreciate input. Will give 1.5L IV NS with 20 mEq KCl once. Continue 1.8L/day fluid restriction. Goal of correction is not over 135 over next 24 hours. Recheck BMP in AM. (2) COPD exacerbation Current Visit: Yes Status: Acute Assessment and plan: Improving. Continue solumedrol for now; taper down to prednisone tomorrow with continued improvement. Continue supplemental O2. Continue duonebs. Continue rocephin and azithromycin. (3) Head and neck cancer Current Visit: Yes Status: Chronic Assessment and plan: Continue outpatient follow-up with oncology. ST consulted and MBS performed; recommend mechanically altered ground meat diet. (4) Lung cancer Current Visit: Yes Status: Chronic Assessment and plan: Continue outpatient follow-up with oncology. Qualifiers: Laterality: left Lung location: upper lobe of lung Qualified Code(s): C34.12 - Malignant neoplasm of upper lobe, left bronchus or lung (5) Hypothyroidism (acquired) Current Visit: Yes Status: Chronic Assessment and plan: Continue home medications. (6) Chronic kidney disease Current Visit: Yes Status: Chronic Assessment and plan: Nephrology consulted; appreciate input. Avoid nephrotoxins. IVF as per above. Recheck BMP in AM. Qualifiers: Chronic kidney disease stage: stage 3 (moderate) Qualified Code(s): N18.3 - Chronic kidney disease, stage 3 (moderate) (7) Tobacco abuse Current Visit: Yes Status: Chronic Assessment and plan: Counselled on smoking cessation. Patient takes one cigarette per day. She does not need nicotine patch (8) Diabetes mellitus Current Visit: Yes Status: Chronic Assessment and plan: Continue accuchecks and SSI QID AC/HS. Qualifiers: Diabetes mellitus type: type 2 Diabetes mellitus longterm insulin use: unspecified termite treater insulin use status Diabetes mellitus complication status : with kidney complications Diabetes mellitus complication detail: with chronic kidney disease Chronic kidney disease stage: stage 3 (moderate) Qualified Code(s): E11.22 - Type 2 diabetes mellitus with diabetic chronic kidney disease; N18.3 - Chronic kidney disease, stage 3 (moderate) (9) Hypertension Current Visit: Yes Status: Chronic Assessment and plan: Continue home medications. Continue hydralazine IV PRN. Qualifiers: Hypertension type: essential hypertension Qualified Code(s): I10 - Essential (primary) hypertension (10) DVT prophylaxis Current Visit: Yes Status: Acute Assessment and plan: Continue SQ heparin. - Time Spent With Patient Total time spent is greater than 50% in coordination of care (as documented) at patient's floor/unit and/or counseling patient: less than 15 minutes - Subjective Interval history: Patient had no acute events overnight. She states that breathing is "better." She denies fever, chills, chest pain, SOB, nausea, vomiting, and abdominal pain. She has no complaints at this time. - Constitutional Vitals: Temp Pulse Resp BP Pulse Ox 98.1 F 90 16 173/76 94 11/10/17 12:17 11/10/17 12:17 11/10/17 12:17 11/10/17 12:17 11/10/17 12:17 General appearance: Present: cooperative, A&O X 3, pleasant, no acute distress, obese, answers questions appropriately - Respiratory Respiratory exam: Absent: accessory muscle use, rales, rhonchi Additional comments: Normal WOB, coarse breath sounds bilaterally with rare intermittent expiratory wheeze - Cardiovascular Cardiovascular exam: Present: RRR, +S1, +S2. Absent: diastolic murmur, gallop, rubs, systolic murmur Additional comments: No BLE edema - GI/Abdominal GI/Abdominal exam: Present: normal bowel sounds, soft. Absent: distended, hepatomegaly, mass, splenomegaly, tenderness - Psychiatric Psychiatric exam: Present: normal affect, normal mood. Absent: agitated, anxious, depressed - Skin Skin exam: Present: dry, intact, warm. Absent: cyanosis, rash Internal Medicine: Result - Labs CBC & Chem 7: 11/10/17 01:28 11/10/17 09:48 Labs: Short CBC 11/10/17 Range/Units 01:28 WBC 10.3 (4.3-11.1) K/mcL Hgb 9.2 L (11.5-15.4) g/dL Hct 28.1 L (35.3-44.9) % Plt Count 300 (140-400) K/mcL Neutrophils # 9.5 H (1.6-8.9) K/mcL BMP 11/09/17 11/09/17 11/09/17 14:03 17:25 21:34 Sodium 127 L 127 L 127 L Potassium Chloride Carbon Dioxide BUN Creatinine Glucose Calcium 11/10/17 11/10/17 11/10/17 01:28 01:28 05:37 Sodium 128 L 127 L 127 L Potassium 3.9 Chloride 82 L Carbon Dioxide 38 H BUN 21 Creatinine 1.02 Glucose 188 H Calcium 9.3 11/10/17 09:48 Sodium 127 L Potassium Chloride Carbon Dioxide BUN Creatinine Glucose Calcium - Impressions Impressions Abdomen/Pelvis CT 11/09/17 03:38 IMPRESSION: 1. No acute findings within abdomen and pelvis. 2. Status post cholecystectomy, with intrahepatic and extrahepatic biliary ductal dilatation. This appears reasonably similar to the 2008 examination. Correlate with LFTs. 3. Left basilar pulmonary opacity is new since previous examination. This may represent atelectasis, pneumonia, and/or area of scarring. Please see separate chest CT from 09/29/2017. 4. Small hiatal hernia with nonspecific thickening of the distal esophagus or herniated stomach. 5. Appendix is not identified. No secondary CT evidence of acute appendicitis. D/ / 11/09/2017 09:02:16 Juan Miguel Ashley MD / ye Interpreting Provider: Juan Miguel Ashley MD Videofluoroscopic Swallow 11/10/17 00:01 IMPRESSION: Penetration. No aspiration Please see separate speech pathology report for full discussion of findings and recommendations. D/ / James Ramirez MD / James Ramirez MD Interpreting Provider: James Ramirez MD Consult Discharge Plan - Plan Referrals: Carolyne Park, CONTINUING EDUCATION SPECIALIST [Advanced Practice Nurse] - 11/16/17 10:30 am (Lakeisha Marsh is on Vacation so you will see Carolyne Park this time.)
[2017-11-10] MEDS: traZODone 50 MG TABLET PO SCH (20:21)
[2017-11-10] MEDS: Mirtazapine 15 MG TABLET PO SCH (20:21)
[2017-11-11] MEDS: Acetylcysteine 10% 2 ML INHSOL IH SCH ×3 (03:41→16:12)
[2017-11-11] MEDS: Ipratropium/Albuterol Neb 3 ML IH SCH ×3 (03:41→16:12)
[2017-11-11 03:50] LABS: Basophils % 0.1 %; Hematocrit 30.5 % (35.3-44.9); Hemoglobin 10.1 g/dL (11.5-15.4); Lymphocytes # 0.7 K/mcL (0.6-4.6); Mean Corpuscular HGB Conc 33.1 g/dL (31.6-35.5); Mean Corpuscular Hemoglobin 28.9 pg (28.0-33.3); Mean Corpuscular Volume 87.4 fL (83.0-100.0); Mean Platelet Volume 8.3 fL (9.4-12.4); Monocytes # 0.4 K/mcL (0.0-1.3); Monocytes % 2.9 %; Neutrophils # 12.2 K/mcL (1.6-8.9); Platelet Count 389 K/mcL (140-400); Red Blood Count 3.49 M/mcL (3.82-4.97)
[2017-11-11 04:16] LABS: BUN/Creatinine Ratio 18 (6-26); Blood Urea Nitrogen 19 mg/dL (8-23); Calcium 9.7 mg/dL (8.6-10.3); Carbon Dioxide 36 mEq/L (23-29); Chloride 89 mEq/L (98-107); Glucose 185 mg/dL (70-105); Osmolality,Calculated 277 (280-300); Potassium 4.3 mEq/L (3.5-5.1); Sodium 130 mEq/L (136-145); eGFR For African Americans > 60 (> 60); eGFR For Non-African Americans 52 (> 60)
[2017-11-11] MEDS: 0.9 % Sodium Chloride w KCl 20 MEQ/1,000 ML MLS IVC SCH (05:53)
[2017-11-11] MEDS: hydrALAZINE 10 MG TABLET PO PRN (06:08)
[2017-11-11] MEDS: *HR* Heparin 5,000 UNIT/ML VIAL SQ SCH (06:08)
[2017-11-11] MEDS: cefTRIAXone 1,000 MG in Water for inj. (sterile) 20 ML 10 ML IVP SCH (08:40)
[2017-11-11] MEDS: MethylPREDNISolone 40 MG/ML VIAL IVP SCH (08:40)
[2017-11-11] MEDS: Insulin LISPRO 300 UNITS/3 ML VIAL SQ SCH ×2 (08:41→13:04)
[2017-11-11] MEDS: Aspirin 81 MG TAB.CHEW PO SCH (08:41)
[2017-11-11] MEDS: Azithromycin 250 MG TABLET PO SCH (08:41)
[2017-11-11] MEDS: Loratadine 10 MG TABLET PO SCH (08:42)
[2017-11-11] MEDS: *HR* LORazepam 1 MG TABLET PO SCH (08:42)
[2017-11-11] MEDS: Budesonide/Formoterol 160/4.5 MDI IH SCH (11:04)
--- NOTE | 2017-11-11 11:46 | Nephrology Progress Note ---
Date of Encounter: 11/11/17 Time of Encounter: 11:30 - Assessment and Plan (1) Hyponatremia Current Visit: Yes Status: Acute Patient's sodium 130meq 11/11; has risen at appropriate trajectory; she is asymptomatic. Per Serum Osm low; Urine Na low; likely hypovolemic hyponatremia; has responded to fluid repletion with NS Encouraged PO intake of balanced diet She is at her baseline prior to admission for sodium; recommend f/u with Nephrology outpatient in 6-8 weeks with BMP in outpatient lab in 1-2 weeks (2) COPD exacerbation Current Visit: Yes Status: Acute Per primary team; plan for taper, continuing O2 titration, duonebs, rocephin/ azithromycin. (3) History of head and neck cancer Current Visit: Yes Status: Acute Speech therapy diet modifications due to minimal swallow dysfunction; patient improved her meal intake yesterday 11/10 (4) Hx of cancer of lung Current Visit: Yes Status: Acute Outpatient surveillance; last seen by Dr. Bravo (5) Diabetes mellitus Current Visit: Yes Status: Chronic on SSI per primary Qualifiers: Diabetes mellitus type: type 2 Diabetes mellitus keno terminal operator insulin use: unspecified chcf insulin use status Diabetes mellitus complication status : with kidney complications Diabetes mellitus complication detail: with chronic kidney disease Chronic kidney disease stage: stage 3 (moderate) Qualified Code(s): E11.22 - Type 2 diabetes mellitus with diabetic chronic kidney disease; N18.3 - Chronic kidney disease, stage 3 (moderate) (6) Hypertension Current Visit: Yes Status: Chronic On ARB and PRN hydralazine per primary Qualifiers: Hypertension type: essential hypertension Qualified Code(s): I10 - Essential (primary) hypertension Subjective Principal diagnosis: Hyponatremia Interval history: Improved PO intake yesterday; no acute events overnight; remains asymptomatic. Objective - Vital Signs Vital signs: Vital Signs Temp Pulse Resp BP Pulse Ox 11/11/17 11:21 97.6 F 91 18 167/80 95 11/11/17 11:07 17 98 11/11/17 08:40 98.2 F 97 17 151/76 98 11/11/17 07:18 98.2 F 97 17 151/76 98 11/11/17 03:47 97.9 F 102 16 181/81 93 11/11/17 03:41 19 94 11/10/17 23:41 98.1 F 93 18 156/60 90 11/10/17 21:53 18 95 11/10/17 20:20 89 11/10/17 19:31 97.9 F 91 20 161/73 94 11/10/17 18:50 96 167/84 11/10/17 16:15 99 20 175/80 90 11/10/17 16:13 18 94 11/10/17 15:50 98.1 F 94 22 159/67 95 11/10/17 12:17 98.1 F 90 16 173/76 94 Intake and Output 11/10/17 11/11/17 11/11/17 23:59 07:59 15:59 Intake Total 1120 / 1120 500 / 500 240 / 240 Output Total 600 / 600 450 / 450 0 / 0 Balance 520 / 520 50 / 50 240 / 240 Intake: IV Fluids 1000 / 1000 KCl 20 mEq in 0.9% Sodium 1000 / 1000 Chloride 20 meq In 1,000 ml @ 83.3 mls/hr IVC .Q[facility]H1M [facility] Rx# :[id number] Oral 120 / 120 240 / 240 Other 500 / 500 Output: Catheter 600 / 600 450 / 450 0 / 0 Other: Meal Dinner Breakfast Percent of Meal Consumed 50% 40% Stool Size Small Stool Consistency loose Stool Color Brown # Bowel Movements 2 # Bowel Movement Diapers 1 Weight 93.2 kg Blood Glucose* 216 171 184 Patient Weight 11/11/17 23:59 Weight 93.2 kg - General Appearance General appearance: Present: well-developed, well-nourished, appears started age EENT: Present: mucous membranes moist Neck: Present: no JVD, supple Respiratory: Present: course breath sounds Additional Comments: normal chest wall excursion Cardiology: Present: no murmurs, no rub, no gallops, no edema, regular rate, regular rhythm, normal S1, normal S2 Gastrointestinal: Present: normoactive bowel sounds Integumentary: Present: no rash, warm and dry Additional Comments: fibrosis of the neck Neurologic: Present: no focal deficit, alert and oriented x3 Musculoskeletal: Present: no deformities, no erythema, no cyanosis, no clubbing Psychiatric: Present: mood/affect appropriate, cooperative - Lab 11/11/17 03:35 11/11/17 03:35 Most recent lab results Calcium 9.7 mg/dL (8.6-10.3) 11/11/17 03:35 Magnesium 1.6 mg/dL (1.6-2.6) 11/09/17 03:28 Urine Sodium < 10.0 mEq/L 11/09/17 19:40 Consult Discharge Plan - Plan Instructions: Prednisone (By mouth), Azithromycin (By mouth), Cefdinir (By mouth) Additional Instructions: Follow up with PCP in 2-3 days after discharge. Recheck BMP (hyponatremia) and CBC (anemia) at that time. Follow up with nephrology in 6-8 weeks after discharge as directed. Referrals: Carolyne Park, HVAC COMMERCIAL SALESPERSON [Advanced Practice Nurse] - 11/16/17 10:30 am (Lakeisha Marsh is on Vacation so you will see Carolyne Park this time.) Prescriptions: Azithromycin [Zithromax] 250 mg PO DAILY 4 Days #4 tablet Cefdinir [Omnicef] 300 mg PO BID 4 Days #8 capsule predniSONE [PredniSONE] See Taper PO DAILY 16 Days #40 tablet
--- NOTE | 2017-11-11 13:15 | Discharge Summary ---
- NOTES TO OUTPATIENT PROVIDER Notes to Outpatient Provider: Follow up with PCP in 2-3 days after discharge. Recheck BMP (hyponatremia) and CBC (anemia) at that time. Follow up with nephrology in 6-8 weeks after discharge as directed. Date of Encounter: 11/11/17 Time of Encounter: 13:12 - Discharge Diagnosis (1) Hyponatremia Priority: Primary Status: Acute (2) COPD exacerbation Priority: Secondary Status: Acute (3) Head and neck cancer Priority: Secondary Status: Chronic (4) Lung cancer Priority: Secondary Status: Chronic Qualifiers: Laterality: left Lung location: upper lobe of lung Qualified Code(s): C34.12 - Malignant neoplasm of upper lobe, left bronchus or lung (5) Hypothyroidism (acquired) Priority: Secondary Status: Chronic (6) Chronic kidney disease Priority: Secondary Status: Chronic Qualifiers: Chronic kidney disease stage: stage 3 (moderate) Qualified Code(s): N18.3 - Chronic kidney disease, stage 3 (moderate) (7) Tobacco abuse Priority: Secondary Status: Chronic (8) Diabetes mellitus Priority: Secondary Status: Chronic Qualifiers: Diabetes mellitus type: type 2 Diabetes mellitus correction insulin use: unspecified supervisor intermediates insulin use status Diabetes mellitus complication status : with kidney complications Diabetes mellitus complication detail: with chronic kidney disease Chronic kidney disease stage: stage 3 (moderate) Qualified Code(s): E11.22 - Type 2 diabetes mellitus with diabetic chronic kidney disease; N18.3 - Chronic kidney disease, stage 3 (moderate) (9) Hypertension Priority: Secondary Status: Chronic Qualifiers: Hypertension type: essential hypertension Qualified Code(s): I10 - Essential (primary) hypertension (10) DVT prophylaxis Priority: Secondary Status: Acute Hospital course: Ms. Valverde is a 67 year old female admitted for hyponatremia and acute exacerbation of COPD. Patient was admitted to step down unit with telemetry. She was started on IVF and serial sodium checks. Sodium initially correct fast , so IVF were stopped. She was placed on fluid restriction 1.8L/day. Nephrology was consulted. Sodium continue to improve with diet. She was evaluated by speech therapy and had MBS. She was placed on mechanically altered ground meat diet. Her sodium of 130 today is back to near her baseline. For her COPD exacerbation, she was started on solumedrol, azithromycin/rocephin, and scheduled duonebs. Breathing slowly improved. She was weaned down to O2 3-4 L NC, which is what she is on at home. Today, she states that her breathing is back to normal. She will be discharged home with azithromycin/omnicef to complete 7 days total, and a prednisone taper. She will follow up with PCP in 2-3 days after discharge. Repeat BMP and CBC can be rechecked at that time. She will follow up with nephrology in 6-8 weeks after discharge as directed. Patient has met maximum benefit of this hospitalization and will be discharged home in stable condition. Discharge discussed with: patient, nurse, case management, technical healthcare consultant ( Nephrology resident physician), other (Pharmacist) - Time Spent with Patient Total time spent providing and/or coordinating discharge services: Greater than 30 minutes - Discharge Medications Prescriptions: Azithromycin [Zithromax] 250 mg PO DAILY 4 Days #4 tablet Cefdinir [Omnicef] 300 mg PO BID 4 Days #8 capsule predniSONE [PredniSONE] See Taper PO DAILY 16 Days #40 tablet Home Medications: Aspirin 81 mg PO DAILY 12/03/14 [History] Ferrous Sulfate [Iron] 325 mg PO DAILY #90 tablet 03/31/16 [Rx] Losartan [Cozaar] 25 mg PO DAILY 06/19/16 [History] Mirtazapine [Remeron] 15 mg PO HS 06/19/16 [History] LORazepam [Ativan] 1 mg PO BID #60 tablet 07/24/16 [Rx] Amitriptyline [Elavil] 10 mg PO HS 10/15/16 [History] Furosemide [Lasix] 40 mg PO DAILY 10/15/16 [History] Roflumilast [Daliresp] 500 mcg PO DAILY 10/15/16 [History] Levothyroxine [Synthroid] 75 mcg PO 0630 09/21/17 [History] Loratadine [Allergy Relief] 10 mg PO DAILY 09/21/17 [History] Omeprazole [PriLOSEC] 20 mg PO DAILY 09/21/17 [History] Trazodone HCl 150 mg PO HS 09/21/17 [History] metOLazone [Zaroxolyn] 5 mg PO TUTH 11/08/17 [History] Albuterol Sulfate [Albuterol Inhaler] 1 puff IH Q4H PRN 11/09/17 [History] Atorvastatin [Lipitor] 10 mg PO HS 11/09/17 [History] Budesonide/Formoterol 160/4.5 [Symbicort 160/4.5] 2 puff IH BIDR 11/09/17 [ History] Citalopram [CeleXA] 20 mg PO DAILY 11/09/17 [History] Tiotropium [Spiriva] 18 mcg IH DAILY 11/09/17 [History] Azithromycin [Zithromax] 250 mg PO DAILY 4 Days #4 tablet 11/11/17 [Rx] Cefdinir [Omnicef] 300 mg PO BID 4 Days #8 capsule 11/11/17 [Rx] predniSONE [PredniSONE] See Taper PO DAILY 16 Days #40 tablet 11/11/17 [Rx] Allergies/Adverse Reactions: 3 Allergy/AdvReac Type Severity Reaction Status Date / Time codeine AdvReac Mild Nausea Verified 11/08/17 18:57 STERIODS AdvReac Mild Rash/NAUSEA Uncoded 11/09/17 09:39 Date of admission: 11/09/17 06:12 Primary care physician: Lakeisha Marsh CNP Consults: 11/09/17 02:14 Consult to Nephrology [CONS] Routine Consulting Provider: Kidney Raquel/HELIO/TY/CYNDY Reason for Consult: hyponatremia Call Completed: Yes 11/09/17 13:52 Consult to Respiratory Therapy [CONS] Stat Reason for Consult: COPD Exacerbation Call Completed: No 11/09/17 15:01 Consult to Nutrition [CONS] Routine Comment: Poor PO intake Consulting Provider: NUTRITION Reason for Dietary Consult: PO Supplementation 11/10/17 10:36 Consult to Physical Therapy [CONS] Routine Comment: Evaluate, develop and implement POC Reason for Consult: EVAL AND TREAT. FROM HOME WITH SPOUSE Does patient have active BEDREST order?: No Is patient medically & hemodynamically stable?: Yes Patient assessed for mobility or mobilized this visit?: No Discharging clinician: Abilio Hernandez Anticipated date of discharge: 11/11/17 - Constitutional Vitals: Temp Pulse Resp BP Pulse Ox 97.6 F 91 18 138/65 95 11/11/17 11:21 11/11/17 11:21 11/11/17 11:21 11/11/17 13:10 11/11/17 11:21 General appearance: Present: cooperative, A&O X 3, pleasant, no acute distress, obese, answers questions appropriately - Respiratory Respiratory exam: Absent: accessory muscle use, rales, rhonchi, wheezes Additional comments: Normal WOB, coarse breath sounds bilaterally - Cardiovascular Cardiovascular exam: Present: RRR, +S1, +S2. Absent: diastolic murmur, gallop, rubs, systolic murmur Additional comments: No BLE edema - GI/Abdominal GI/Abdominal exam: Present: normal bowel sounds, soft. Absent: distended, hepatomegaly, mass, splenomegaly, tenderness - Psychiatric Psychiatric exam: Present: normal affect, normal mood. Absent: agitated, anxious, depressed - Skin Skin exam: Present: dry, intact, warm. Absent: cyanosis, rash - Patient Status Disposition: Home, Self-Care Condition: Good Overall status at discharge: patient is progressing back to baseline - Discharge Instructions Follow Up With: Carolyne Park RUSSET REPAIRER [Advanced Practice Nurse] - 11/16/17 10:30 am (Lakeisha Marhs is on Vacation so you will see Carolyne Park this time.) Additional Instructions: Follow up with PCP in 2-3 days after discharge. Recheck BMP (hyponatremia) and CBC (anemia) at that time. Follow up with nephrology in 6-8 weeks after discharge as directed. - Diet and Activity Activity: resume usual activities as tolerated Diet: diabetic diet, low fat, low cholesterol, low salt diet, other (Fluid Restriction Diet 1.8L/day, Mechanically Altered Ground Meat Diet, Cardiac Diet)
[2017-11-11 15:30] VITALS: BP 166/73
--- NOTE | 2017-11-11 15:50 | Physician Discharge Referral ---
Home Health/Hosp Referral Info Transfer to: Home Health Provider in Charge Post Discharge: PCP - Diagnosis (1) Hyponatremia Priority: Primary Status: Acute (2) COPD exacerbation Priority: Secondary Status: Acute (3) Head and neck cancer Priority: Secondary Status: Chronic (4) Lung cancer Priority: Secondary Status: Chronic (5) Hypothyroidism (acquired) Priority: Secondary Status: Chronic (6) Chronic kidney disease Priority: Secondary Status: Chronic (7) Tobacco abuse Priority: Secondary Status: Chronic (8) Diabetes mellitus Priority: Secondary Status: Chronic (9) Hypertension Priority: Secondary Status: Chronic (10) DVT prophylaxis Priority: Secondary Status: Acute - Respiratory Orders Oxygen / L per min (2-3 L NC continuous) Smoking Cessation: Smoking cessation has been advised. For more information, call the [employer] Quit Line at [phone]-TNML-NOW. - Diet/Nutrition Diet/Nutrition Orders: Mechanical Soft (Mechanically Altered Ground Meat Diet, Fluid Restricted Diet 1.8L/day), Cardiac, No Concentrated Sweets (Diabetic Diet) - Activity Activity: List: Per physical therapy - Services Needed Following services are medically necessary services: Nursing, Home Health Aide, Physical Therapy, Occupational Therapy - Transfer Medications Prescriptions: Azithromycin [Zithromax] 250 mg PO DAILY 4 Days #4 tablet Cefdinir [Omnicef] 300 mg PO BID 4 Days #8 capsule predniSONE [PredniSONE] See Taper PO DAILY 16 Days #40 tablet Home Medications: Aspirin 81 mg PO DAILY 12/03/14 [History] Ferrous Sulfate [Iron] 325 mg PO DAILY #90 tablet 03/31/16 [Rx] Losartan [Cozaar] 25 mg PO DAILY 06/19/16 [History] Mirtazapine [Remeron] 15 mg PO HS 06/19/16 [History] LORazepam [Ativan] 1 mg PO BID #60 tablet 07/24/16 [Rx] Amitriptyline [Elavil] 10 mg PO HS 10/15/16 [History] Furosemide [Lasix] 40 mg PO DAILY 10/15/16 [History] Roflumilast [Daliresp] 500 mcg PO DAILY 10/15/16 [History] Levothyroxine [Synthroid] 75 mcg PO 0630 09/21/17 [History] Loratadine [Allergy Relief] 10 mg PO DAILY 09/21/17 [History] Omeprazole [PriLOSEC] 20 mg PO DAILY 09/21/17 [History] Trazodone HCl 150 mg PO HS 09/21/17 [History] metOLazone [Zaroxolyn] 5 mg PO TUTH 11/08/17 [History] Albuterol Sulfate [Albuterol Inhaler] 1 puff IH Q4H PRN 11/09/17 [History] Atorvastatin [Lipitor] 10 mg PO HS 11/09/17 [History] Budesonide/Formoterol 160/4.5 [Symbicort 160/4.5] 2 puff IH BIDR 11/09/17 [ History] Citalopram [CeleXA] 20 mg PO DAILY 11/09/17 [History] Tiotropium [Spiriva] 18 mcg IH DAILY 11/09/17 [History] Azithromycin [Zithromax] 250 mg PO DAILY 4 Days #4 tablet 11/11/17 [Rx] Cefdinir [Omnicef] 300 mg PO BID 4 Days #8 capsule 11/11/17 [Rx] predniSONE [PredniSONE] See Taper PO DAILY 16 Days #40 tablet 11/11/17 [Rx] Allergies/Adverse Reactions: 3 Allergy/AdvReac Type Severity Reaction Status Date / Time codeine AdvReac Mild Nausea Verified 11/08/17 18:57 STERIODS AdvReac Mild Rash/NAUSEA Uncoded 11/09/17 09:39 Certification: Further, I certify that my clinical findings support that this patient is homebound (i.e. absences from home require considerable and taxing effort and are for medical reasons or islam services or infrequently or short duration when for other reasons) because: COPD, head and neck cancer, lung cancer, hyponatremia, CKD, Type II DM, and HTN. Homebound Reason: Patient requires assistance of a person or device to safely leave home, Leaving home requires considerable and taxing effort due to condition, Severity of cardiac or pulmonary status limits activity tolerance Attestation: My signature below is to certify that this patient is under my care and that I, or nurse practitioner, or a physician's tmd teacher assistant working with me, has a face-to -face encounter with this patient.
== END 2017-11-11 17:03 | disposition home or self-care (01) | DRG 426 ==
LOC: 2NNU
PROVIDERS: ADMIT Internal Medicine; ATTEND Internal Medicine

== ENCOUNTER 2020-02-19 21:13 | Observation (INO) ==
[2020-02-19] MEDS ORDERED: Naloxone 0.4 MG/ML INJ IVP PRN (22:54)
[2020-02-19] MEDS ORDERED: Perflutren Lipid Microsphere 1.3 ML in 0.9 % Sodium Chloride 8.7 ML IVP PRN (22:55)
[2020-02-20 03:06] LABS: Hematocrit 23.6 % (35.3-44.9); Hemoglobin 7.7 g/dL (11.5-15.4); Mean Corpuscular HGB Conc 32.6 g/dL (31.6-35.5); Mean Corpuscular Hemoglobin 30.6 pg (28.0-33.3); Mean Corpuscular Volume 93.7 fL (83.0-100.0); Mean Platelet Volume 8.9 fL (9.4-12.4); Platelet Count 291 K/mcL (140-400); Red Blood Count 2.52 M/mcL (3.82-4.97); Red Cell Distribution Width 14.2 % (11.5-14.5); White Blood Count 6.3 K/mcL (4.3-11.1)
[2020-02-20 03:07] LABS: INR 1.1; Prothrombin Time 12.3 Seconds (9.4-12.1)
[2020-02-20 03:25] LABS: Alanine Aminotransferase 4 Units/L (7-52); Albumin/Globulin Ratio 1.4 (1.1-2.2); Alkaline Phosphatase 48 Units/L (34-104); Aspartate Amino Transferase 8 Units/L (13-39); BUN/Creatinine Ratio 11 (6-26); Bilirubin,Total 0.3 mg/dL (0.3-1.0); Blood Urea Nitrogen 12 mg/dL (8-23); Calcium 8.9 mg/dL (8.6-10.3); Carbon Dioxide 30 mEq/L (23-29); Chloride 98 mEq/L (98-107); Chol/HDL Ratio 3.3 (0-4.9); Cholesterol 169 mg/dL (< 200); Globulin 2.1 g/dL (2.4-3.5); Glucose 87 mg/dL (70-105); HDL Cholesterol 52 mg/dL (40-59); LDL Cholesterol,Calculated 99 mg/dL (< 100); Osmolality,Calculated 277 (280-300); Potassium 3.6 mEq/L (3.5-5.1); Sodium 134 mEq/L (136-145); Total Protein 5.1 g/dL (6.4-8.9); Triglycerides 89 mg/dL (< 150); eGFR For African Americans > 60 (> 60); eGFR For Non-African Americans 51 (> 60)
[2020-02-20 03:27] LABS: Troponin I 0.03 ng/mL (< 0.04)
[2020-02-20 04:18] LABS: Estimated Average Glucose 117 mg/dl
[2020-02-20] MEDS ORDERED: *HR* Dextrose 50 % in Water (Vial) 50 ML VIAL IVP PRN (05:56)
[2020-02-20] MEDS ORDERED: D5% in Water 1,000 ML IVC PRN (05:56)
[2020-02-20] MEDS ORDERED: Dextrose Gel 15 GM/37.5 ML TUBE PO PRN ×2 (05:56)
[2020-02-20] MEDS: Insulin LISPRO 300 UNITS/3 ML VIAL SQ SCH ×4 (07:38→20:50)
[2020-02-20 08:49] LABS: Mean Corpuscular HGB Conc 31.7 g/dL (31.6-35.5); Mean Corpuscular Hemoglobin 30.6 pg (28.0-33.3); Mean Corpuscular Volume 96.8 fL (83.0-100.0); Mean Platelet Volume 8.8 fL (9.4-12.4); Platelet Count 356 K/mcL (140-400); Red Cell Distribution Width 14.5 % (11.5-14.5); White Blood Count 8.3 K/mcL (4.3-11.1)
[2020-02-20 08:50] LABS: Hemoglobin 9.5 g/dL (11.5-15.4)
[2020-02-20] MEDS: Acetaminophen 325 MG TABLET PO PRN (16:43)
[2020-02-21 04:33] LABS: Hematocrit 29.2 % (35.3-44.9); Hemoglobin 9.2 g/dL (11.5-15.4); Mean Corpuscular HGB Conc 31.5 g/dL (31.6-35.5); Mean Corpuscular Hemoglobin 29.6 pg (28.0-33.3); Mean Corpuscular Volume 93.9 fL (83.0-100.0); Mean Platelet Volume 8.8 fL (9.4-12.4); Platelet Count 335 K/mcL (140-400); Red Blood Count 3.11 M/mcL (3.82-4.97); Red Cell Distribution Width 14.3 % (11.5-14.5); White Blood Count 7.8 K/mcL (4.3-11.1)
[2020-02-21 04:50] LABS: BUN/Creatinine Ratio 12 (6-26); Blood Urea Nitrogen 11 mg/dL (8-23); Calcium 9.7 mg/dL (8.6-10.3); Carbon Dioxide 30 mEq/L (23-29); Chloride 96 mEq/L (98-107); Glucose 84 mg/dL (70-105); Osmolality,Calculated 277 (280-300); Potassium 3.6 mEq/L (3.5-5.1); Sodium 134 mEq/L (136-145); eGFR For African Americans > 60 (> 60); eGFR For Non-African Americans > 60 (> 60)
[2020-02-21] MEDS: Insulin LISPRO 300 UNITS/3 ML VIAL SQ SCH ×4 (07:45→21:18)
[2020-02-21] MEDS ORDERED: Ipratropium/Albuterol Neb 3 ML IH PRN (14:29)
[2020-02-21] MEDS: Acetaminophen 325 MG TABLET PO PRN (16:23)
[2020-02-21] MEDS ORDERED: Gadolinium Contrast Agent (WT Based) IV PRN (17:10)
[2020-02-21] MEDS ORDERED: *HR* LORazepam 1 MG TABLET PO SCH (21:00)
[2020-02-21] MEDS ORDERED: Mirtazapine 15 MG TABLET PO SCH (21:00)
[2020-02-21] MEDS ORDERED: traZODone 50 MG TABLET PO SCH (21:00)
[2020-02-21] MEDS: rOPINIRole 0.25 MG TABLET PO SCH (21:24)
[2020-02-21] MEDS: Budesonide/Formoterol 160/4.5 1 PUFF INH IH SCH (22:09)
[2020-02-22 05:04] LABS: Basophils # 0.1 K/mcL (0.0-0.2); Basophils % 1.3 %; Eosinophils # 0.4 K/mcL (0.0-0.6); Eosinophils % 6.7 %; Hematocrit 26.6 % (35.3-44.9); Hemoglobin 8.3 g/dL (11.5-15.4); Immature Granulocytes % 0.5 % (0-4); Lymphocytes # 1.1 K/mcL (0.6-4.6); Lymphocytes % 18.1 %; Mean Corpuscular HGB Conc 31.2 g/dL (31.6-35.5); Mean Corpuscular Hemoglobin 29.2 pg (28.0-33.3); Mean Corpuscular Volume 93.7 fL (83.0-100.0); Mean Platelet Volume 8.9 fL (9.4-12.4); Monocytes # 0.7 K/mcL (0.0-1.3); Monocytes % 10.8 %; Platelet Count 290 K/mcL (140-400); Red Blood Count 2.84 M/mcL (3.82-4.97); Red Cell Distribution Width 14.2 % (11.5-14.5); Segmented Neutrophils % 62.6 %; White Blood Count 6.3 K/mcL (4.3-11.1)
[2020-02-22 05:18] LABS: BUN/Creatinine Ratio 14 (6-26); Blood Urea Nitrogen 13 mg/dL (8-23); Carbon Dioxide 29 mEq/L (23-29); Chloride 98 mEq/L (98-107); Potassium 3.2 mEq/L (3.5-5.1); Sodium 136 mEq/L (136-145)
[2020-02-22 05:19] LABS: Calcium 9.1 mg/dL (8.6-10.3); Glucose 74 mg/dL (70-105); Osmolality,Calculated 281 (280-300); eGFR For African Americans > 60 (> 60); eGFR For Non-African Americans 59 (> 60)
[2020-02-22] MEDS: Insulin LISPRO 300 UNITS/3 ML VIAL SQ SCH ×2 (08:12→11:53)
[2020-02-22] MEDS: rOPINIRole 0.25 MG TABLET PO SCH (08:36)
[2020-02-22] MEDS: *HR* LORazepam 1 MG TABLET PO SCH ×2 (08:38→12:58)
[2020-02-22] MEDS ORDERED: Furosemide 20 MG TABLET PO SCH (09:00)
[2020-02-22] MEDS ORDERED: Roflumilast [Daliresp] 500 MCG PO SCH (09:00)
[2020-02-22] MEDS ORDERED: Tiotropium 18 MCG inhalation IH SCH (09:00)
[2020-02-22] MEDS ORDERED: Aspirin 81 MG TAB.CHEW PO SCH (09:00)
[2020-02-22] MEDS ORDERED: Loratadine 10 MG TABLET PO SCH (09:00)
[2020-02-22] MEDS: Budesonide/Formoterol 160/4.5 1 PUFF INH IH SCH (10:20)
[2020-02-22 15:30] VITALS: BP 146/66
== END 2020-02-22 17:24 | disposition home or self-care (01) ==
LOC: 3BNU
PROVIDERS: ADMIT Family Medicine; ATTEND Family Medicine